=== PATIENT | female | born 1950 | race Caucasian/White ===

== ENCOUNTER → 2017-07-03 12:19 | Outpatient (CLI) | payer MEDICARE, OTHER, SELFPAY ==
[2017-07-03 13:48] LABS: Alanine Aminotransferase 26 IU/L (9-52); Albumin 4.1 g/dL (3.5-5.0); Albumin Globulin Ratio 1.5 (1.0-2.8); Alkaline Phosphatase 49 U/L (38-126); Aspartate Aminotransferase 23 IU/L (14-36); Bilirubin Total 0.6 mg/dL (0.2-1.3); Bilirubin Unconjugated 0.4 mg/dL (0.0-1.1); Globulin 2.7 g/dL (1.7-4.1); HEMOLYSIS < 15 (0-50); Total Protein 6.8 g/dL (6.3-8.2)
[2017-07-03 14:55] LABS: Free T4, Direct Thyroxine 0.88 ng/dL (0.78-2.19)
[2017-07-03 15:09] LABS: Thyroid Stimulating Hormone 0.28 uIU/mL (0.47-4.68)
[2017-07-05 16:18] LABS: Triiodothyronine T3 Total 88 ng/dL (76-181)
== END ==
PROVIDERS: PCP Internal Medicine; Visit Provider Internal Medicine Endocrinology, Diabetes & Metabolism
DX: E04.1 Nontoxic single thyroid nodule (principal); E05.90 Thyrotoxicosis, unspecified without thyrotoxic crisis or storm
CPT/HCPCS: 36415; 80076; 84439; 84443; 84480

== ENCOUNTER → 2017-08-10 11:57 | Outpatient (CLI) | payer MEDICARE, OTHER, SELFPAY ==
[2017-08-10 13:20] LABS: Free T3, Triiodothyronine Free 3.39 pg/mL (2.77-5.27); Free T4, Direct Thyroxine 0.87 ng/dL (0.78-2.19)
[2017-08-10 13:33] LABS: Thyroid Stimulating Hormone 1.01 uIU/mL (0.47-4.68)
== END ==
PROVIDERS: PCP Internal Medicine; Visit Provider Internal Medicine Endocrinology, Diabetes & Metabolism
DX: R94.6 Abnormal results of thyroid function studies (principal); E04.1 Nontoxic single thyroid nodule; E05.90 Thyrotoxicosis, unspecified without thyrotoxic crisis or storm
CPT/HCPCS: 36415; 84439; 84443; 84481

== ENCOUNTER → 2017-11-13 10:43 | Outpatient (CLI) | payer MEDICARE, OTHER, SELFPAY ==
[2017-11-13 11:27] LABS: Add Manual Diff / Slide Review NO; Basophils Percent Auto 1.2 % (0-2); Eosinophils Percent Auto 2.3 % (2-4); Hematocrit 42.6 % (36-46); Hemoglobin 14.4 g/dL (12.0-16.0); Lymphocytes Percent Auto 22.7 % (25-40); Mean Corpuscular HGB Conc 33.9 % (30-36); Mean Corpuscular Hemoglobin 31.1 PG (26-34); Mean Corpuscular Volume 91.8 fL (80-100); Monocytes Percent Auto 6.8 % (3-14); Neutrophils Absolute Auto 4400 /uL (3000-5900); Platelet Count 230 X10^3/uL (150-400); Red Blood Cell Count 4.64 X10^6/uL (4.0-5.2); Red Cell Distribution Width 13.7 % (11.6-14.8); White Blood Cell Count 6.6 X10^3/uL (4.5-11.0)
[2017-11-13 12:04] LABS: Alanine Aminotransferase 32 IU/L (9-52); Albumin 4.6 g/dL (3.5-5.0); Albumin Globulin Ratio 1.9 (1.0-2.8); Alkaline Phosphatase 39 U/L (38-126); Bilirubin Total 0.6 mg/dL (0.2-1.3); Bilirubin Unconjugated 0.2 mg/dL (0.0-1.1); Globulin 2.4 g/dL (1.7-4.1)
[2017-11-13 12:12] LABS: Aspartate Aminotransferase 33 IU/L (14-36); HEMOLYSIS 65 (0-50)
[2017-11-13 12:22] LABS: Free T3, Triiodothyronine Free 2.73 pg/mL (2.77-5.27); Free T4, Direct Thyroxine 0.81 ng/dL (0.78-2.19)
[2017-11-13 12:36] LABS: Thyroid Stimulating Hormone 2.85 uIU/mL (0.47-4.68)
== END ==
PROVIDERS: PCP Internal Medicine; Visit Provider Internal Medicine Endocrinology, Diabetes & Metabolism
DX: E04.1 Nontoxic single thyroid nodule (principal)
CPT/HCPCS: 36415; 80076; 84439; 84443; 84481; 85025

== ENCOUNTER → 2017-12-03 10:41 | Outpatient (CLI) | payer MEDICARE, OTHER, SELFPAY ==
--- NOTE | 2017-12-03 | DI.US.S_ITS ---
PROCEDURE: US THYROID INDICATIONS: NONTOXIC GOITER TECHNIQUE: Real-time scanning was performed of the thyroid gland, with image documentation. COMPARISON: [facility], [place], THYROID, 11/17/2014, 10:22. [facility], [place] THYROID, 12/21/2015, 8:30. FINDINGS: Right: Thyroid lobe measures 4.3 x 1.3 x 1.4 cm. Left: Thyroid lobe measures 4 x 1.2 x 1.4 cm and demonstrates multiple subcentimeter colloid cyst, with internal debris. Isthmus: 3 mm thick. Nodule number: 1 Location: Right superior thyroid Size: 0.8 x 0.7 x 0.6 cm, previously measuring 0.8 by 0.7 x 0.9 cm. Composition: Solid Echogenicity: Hypoechoic Shape: wider than tall. Margins: Smooth Echogenic foci: Punctate Total points: 7 ACR TI-RADS category: 5, highly suspicious. An ultrasound followup is recommended in 1, 3, and 5 years for a nodule of this size. Nodule number: 2 Location: Right isthmus Size: 0.5 x 0.5 x 0.3 cm, previously measuring 0.7 x 0.4 x 0.7 cm Composition: Cystic Echogenicity: Hypoechoic Shape: wider than tall. Margins: Smooth Echogenic foci: None Total points: 2 ACR TI-RADS category: 2, not suspicious. An ultrasound followup is recommended in 1, 3, and 5 years for a nodule of this size. IMPRESSION: Ultrasound followup is recommended for the larger of the 2 right thyroid nodules. ACR TI-RADS definitions and recommendations: TI-RADS 1 (benign): 0 points. FNA not needed. TI-RADS 2 (not suspicious): 2 points. FNA not needed. TI-RADS 3 (mildly suspicious): 3 points. * FNA if 2.5 cm or larger, follow up if 1.5 cm or larger (at 1, 3, and 5 years). TI-RADS 4 (moderately suspicious): 4-6 points. * FNA if 1.5 cm or larger, follow up if 1 cm or larger (at 1, 2, 3, and 5 years). TI-RADS 5 (highly suspicious): 7 points or more. * FNA if 1 cm or larger, follow up if 0.5 cm or larger (every year for 5 years). Dictated by: Henry Luna M.D. on 12/03/2017 at 11:42 Approved by: Henry Luna M.D. on 12/03/2017 at 11:47
== END ==
PROVIDERS: PCP Internal Medicine; Visit Provider Internal Medicine Endocrinology, Diabetes & Metabolism
DX: E04.2 Nontoxic multinodular goiter (principal)
CPT/HCPCS: 76536

== ENCOUNTER → 2018-01-18 11:39 | Outpatient (CLI) | payer MEDICARE, OTHER, SELFPAY ==
[2018-01-18 12:20] LABS: Add Manual Diff / Slide Review NO; Basophils Percent Auto 0.9 % (0-2); Hematocrit 40.8 % (36-46); Hemoglobin 13.6 g/dL (12.0-16.0); Lymphocytes Percent Auto 17.6 % (25-40); Mean Corpuscular HGB Conc 33.4 % (30-36); Mean Corpuscular Volume 92.8 fL (80-100); Monocytes Percent Auto 5.6 % (3-14); Neutrophils Absolute Auto 6700 /uL (3000-5900); Neutrophils Percent Auto 74.9 % (50-75); Platelet Count 225 X10^3/uL (150-400); White Blood Cell Count 8.9 X10^3/uL (4.5-11.0)
[2018-01-18 13:21] LABS: Alanine Aminotransferase 28 IU/L (9-52); Albumin Globulin Ratio 1.7 (1.0-2.8); Alkaline Phosphatase 46 U/L (38-126); Aspartate Aminotransferase 21 IU/L (14-36); Bilirubin Total 0.4 mg/dL (0.2-1.3); Bilirubin Unconjugated 0.3 mg/dL (0.0-1.1); Globulin 2.4 g/dL (1.7-4.1); HEMOLYSIS < 15 (0-50); Total Protein 6.4 g/dL (6.3-8.2)
[2018-01-18 13:28] LABS: Free T3, Triiodothyronine Free 2.75 pg/mL (2.77-5.27); Free T4, Direct Thyroxine 0.92 ng/dL (0.78-2.19)
[2018-01-18 13:41] LABS: Thyroid Stimulating Hormone 0.05 uIU/mL (0.47-4.68)
== END ==
PROVIDERS: Family Provider Internal Medicine; PCP Internal Medicine; Visit Provider Internal Medicine Endocrinology, Diabetes & Metabolism
DX: E05.90 Thyrotoxicosis, unspecified without thyrotoxic crisis or storm (principal)
CPT/HCPCS: 36415; 80076; 84439; 84443; 84481; 85025

== ENCOUNTER → 2018-02-16 12:40 | Outpatient (CLI) | payer MEDICARE, OTHER, SELFPAY ==
--- NOTE | 2018-02-16 | DI.MRI.S_ITS ---
PROCEDURE: MR SHOULDER LT WO CON INDICATIONS: Unspecified disorder of synovium and tendon, left TECHNIQUE: Noncontrast oblique coronal T2 fast spin echo with fat saturation, oblique sagittal T1 spin echo and T2 fast spin echo with fat saturation, axial T1 spin echo and T2 fast spin echo with fat saturation through the shoulder. COMPARISON: None. FINDINGS: Image quality: Excellent. Rotator cuff: There is a full-thickness rupture of distal supraspinatus at its insertion on greater tuberosity of humeral head with 1.6 cm medial retraction of torn tendon fibers and a fluid filled gap measures 2 cm in AP dimension. Tendinosis and moderate grade articular surface partial thickness tear involving distal supraspinatus is seen at its insertion on the humeral head extending to the musculotendinous junction. Tendinosis and moderate grade intrasubstance partial-thickness tear involving distal subscapularis is seen. Sagittal images demonstrate moderate supraspinatus muscle atrophy. Bones and bursae: No bone marrow contusions or fractures. Moderate acromioclavicular joint and glenohumeral joint osteoarthritis is seen. No gross fracture or dislocation. Small to moderate amount of fluid is seen within glenohumeral joint and subacromial subdeltoid bursa. No gross loose body. Capsule and soft tissues: There is suggestion of inferior labral tear from 5 to 7:00 position. No gross focal superior labral tear. The glenohumeral ligaments appear intact. The long head of the biceps tendon demonstrates normal location and morphology. The rotator interval appears normal, without fibrosis. The coracohumeral ligament is normal in thickness. IMPRESSION: 1. Full-thickness rupture of distal supraspinatus at its insertion on greater tuberosity with 1.6 cm medial retraction of torn tendon fibers. 2. Tendinosis and moderately articular surface partial-thickness tear involving distal supraspinatus at its insertion the humeral head extending to musculotendinous junction. Tendinosis and moderate grade intrasubstance partial-thickness tear involving distal subscapularis. 3. Extensive inferior labral tear from 5 to 7:00 position. 4. Moderate acromioclavicular joint and glenohumeral joint osteoarthritis. Small to moderate amount of joint effusion and subacromial subdeltoid bursal fluid. Dictated by: Luis Bojorquez M.D. on 02/18/2018 at 11:46 Approved by: Luis Bojorquez M.D. on 02/18/2018 at 11:53
== END ==
PROVIDERS: PCP Internal Medicine; Visit Provider Orthopaedic Surgery
DX: M75.122 Complete rotator cuff tear or rupture of left shoulder, not specified as traumatic (principal); S43.492A Other sprain of left shoulder joint, initial encounter; M19.012 Primary osteoarthritis, left shoulder; M25.412 Effusion, left shoulder
CPT/HCPCS: 73221

== ENCOUNTER → 2018-03-08 11:12 | Outpatient (CLI) | payer MEDICARE, OTHER, SELFPAY ==
[2018-03-08 15:37] LABS: Add Manual Diff / Slide Review NO; Basophils Absolute Auto 100 /uL (0-100); Eosinophils Absolute Auto 100 /uL (0-450); Eosinophils Percent Auto 1.7 % (2-4); Hematocrit 40.8 % (36-46); Hemoglobin 13.6 g/dL (12.0-16.0); Lymphocytes Absolute Auto 1700 /uL (1100-4500); Lymphocytes Percent Auto 19.6 % (25-40); Mean Corpuscular HGB Conc 33.4 % (30-36); Mean Corpuscular Hemoglobin 31.1 PG (26-34); Mean Corpuscular Volume 92.9 fL (80-100); Monocytes Absolute Auto 500 /uL (0-900); Monocytes Percent Auto 5.9 % (3-14); Neutrophils Absolute Auto 6200 /uL (1500-7000); Neutrophils Percent Auto 71.8 % (50-75); Platelet Count 241 X10^3/uL (150-400); Red Blood Cell Count 4.39 X10^6/uL (4.0-5.2); White Blood Cell Count 8.6 X10^3/uL (4.5-11.0)
[2018-03-08 15:55] LABS: Alanine Aminotransferase 23 IU/L (9-52); Albumin 4.4 g/dL (3.5-5.0); Alkaline Phosphatase 42 U/L (38-126); Aspartate Aminotransferase 24 IU/L (14-36); Bilirubin Total 0.5 mg/dL (0.2-1.3); Bilirubin Unconjugated 0.3 mg/dL (0.0-1.1); Globulin 2.2 g/dL (1.7-4.1); HEMOLYSIS < 15 (0-50); Total Protein 6.6 g/dL (6.3-8.2)
[2018-03-08 16:12] LABS: Free T3, Triiodothyronine Free 3.06 pg/mL (2.77-5.27); Free T4, Direct Thyroxine 0.91 ng/dL (0.78-2.19)
[2018-03-08 16:26] LABS: Thyroid Stimulating Hormone 1.43 uIU/mL (0.47-4.68)
== END ==
PROVIDERS: Family Provider Internal Medicine; PCP Internal Medicine; Visit Provider Internal Medicine Endocrinology, Diabetes & Metabolism
DX: E04.1 Nontoxic single thyroid nodule (principal); E05.90 Thyrotoxicosis, unspecified without thyrotoxic crisis or storm; R00.2 Palpitations
CPT/HCPCS: 36415; 80076; 84439; 84443; 84481; 85025

== ENCOUNTER 2018-04-26 16:43 | Emergency (ER) | payer MEDICARE, OTHER, SELFPAY ==
[2018-04-26 17:08] VITALS: BP 111/58; PULSE 107; RESP 18; TEMP 37.3; O2SAT 97
[2018-04-26] MEDS: ONDANSETRON 4 MG ODT PO (17:16)
--- NOTE | 2018-04-26 19:23 | ED.NAVMDI ---
HPI - Nausea/Vomiting/Diarrhea <VALENTE Ferguson Last Filed: 04/26/18 22:26> General Chief complaint: Nausea/Vomiting/Diarrhea Stated complaint: STATES FOOD POISONING YESTERDAY, N/V/D Time Seen by Provider: 04/26/18 19:23 Source: patient Mode of arrival: ambulatory Limitations: no limitations History of Present Illness HPI Narrative: This 67-year-old female complains of copious nausea and vomiting after eating out last night. Her was with her and had some diarrhea but has not had vomiting. She states she started feeling poorly awhile after dinner last night and then awoke and had continuous vomiting for about 5 hr until about 230 this morning. She states that vomiting stopped, but about 8 a.m. she began having very frequent diarrhea that gradually improved to every 0.5 hr then resolved around 2:00 p.m.. She states that she had some cramps with the diarrhea but really not having abdominal pain. She states that she continues to have nausea, could not keep water down earlier nor her Tylenol and ibuprofen that she is post to take for her shoulder pain (recent rotator cuff repair). She states that she did not have fever at home, had sweats with diarrhea. She denies any other recent exposures, no recent travel or recent antibiotics. She denies any chest pain or dyspnea, but does complain of headache on systems review Related Data Allergies Allergy/AdvReac Type Severity Reaction Status Date / Time Penicillins Allergy Mild Rash Verified 04/26/18 17:12 Sulfa (Sulfonamide Allergy Mild Redness of Verified 04/26/18 17:12 Antibiotics) Skin Review of Systems <VALENTE Ferguson Last Filed: 04/26/18 22:26> Review of Systems ROS Unobtainable: All systems reviewed & are unremarkable except as noted in HPI and below PFSH <VALENTE Ferguson Last Filed: 04/26/18 22:26> Medical History Hyperlipidemia (Chronic) Hyperthyroidism (Chronic) Surgical History S/P rotator cuff repair (Resolved) Status post cholecystectomy (Resolved) Status post oophorectomy (Resolved) Social History Smoking Status: Never smoker Social History Smoking Status: Never smoker Exam <VALENTE Ferguson Last Filed: 04/26/18 22:26> Narrative Exam Narrative: GENERAL APPEARANCE: Patient sitting comfortably, in no distress. HEENT: PERRL, EOMI, no scleral icterus NECK: Supple LUNGS: Clear to auscultation bilaterally. HEART: Rate and rhythm regular, normal S1 and S2, no S3 or S4. ABDOMEN: Soft, nontender, nondistended, bowel sounds present x 4 quadrants, no masses palpable, no hepatosplenomegaly. EXTREMITIES: No edema, no cyanosis DERMATOLOGIC: No jaundice or exanthem NEUROLOGIC: Alert and oriented with normal speech and coordination Initial Vital Signs Initial Vital Signs: Vital Signs Temperature 99.1 F 04/26/18 17:08 Pulse Rate 107 H 04/26/18 17:08 Respiratory Rate 18 04/26/18 17:08 Blood Pressure 111/58 L 04/26/18 17:08 Pulse Oximetry 97 04/26/18 17:08 <Fabby Maxwell DO - Last Filed: 04/27/18 04:39> Initial Vital Signs Initial Vital Signs: Vital Signs Temperature 99.1 F 04/26/18 17:08 Pulse Rate 107 H 04/26/18 17:08 Respiratory Rate 18 04/26/18 17:08 Blood Pressure 111/58 L 04/26/18 17:08 Pulse Oximetry 97 04/26/18 17:08 Course <Rachel Armando PA-C - Last Filed: 04/26/18 22:26> Additional Information: Patient is feeling significantly improved prior to discharge. Tolerating oral fluids, no recurrent vomiting or diarrhea. She agreed to return if acutely worsening symptoms again, otherwise will rest at home, brat diet, Zofran as needed and Imodium as needed Orders Ordered: ED Orders 04/26/18 19:45 Complete Blood Count AUTO DIFF Stat Comprehensive Metabolic Panel Stat Lipase Stat Partial Thromboplastin Time Stat Prothrombin Time INR Stat Discontinued Medications Sodium Chloride (Normal Saline 0.9%) 1,000 mls @ 1,000 mls/hr IV BOLUS ONE Stop: 04/26/18 20:18 Last Infusion: 04/26/18 22:03 Dose: 0 mls/hr Admin: 04/26/18 19:53 Dose: 1,000 mls/hr Sodium Chloride (Normal Saline 0.9%) 1,000 mls @ 1,000 mls/hr IV BOLUS ONE Stop: 04/26/18 20:36 Last Admin: 04/26/18 20:07 Dose: Not Given Ketorolac Tromethamine (Toradol) 15 mg IV NOW ONE Stop: 04/26/18 19:38 Last Admin: 04/26/18 20:00 Dose: 15 mg Loperamide HCl (Imodium) 4 mg PO NOW ONE Stop: 04/26/18 21:27 Last Admin: 04/26/18 21:50 Dose: 4 mg Ondansetron HCl (Zofran Odt) 4 mg PO NOW ONE Stop: 04/26/18 17:16 Last Admin: 04/26/18 17:16 Dose: 4 mg Ondansetron HCl (Zofran) 4 mg IV NOW ONE Stop: 04/26/18 19:20 Last Admin: 04/26/18 19:54 Dose: 4 mg Ondansetron HCl (Zofran) 4 mg IV NOW ONE Stop: 04/26/18 19:38 Last Admin: 04/26/18 20:07 Dose: Not Given Ondansetron HCl (Zofran Odt Prepack) 1 bottle MISC SEEINSTR ONE Stop: 04/26/18 21:27 Last Admin: 04/26/18 21:51 Dose: 1 bottle Pantoprazole Sodium (Protonix) 40 mg IV NOW ONE Stop: 04/26/18 19:38 Last Admin: 04/26/18 20:00 Dose: 40 mg Vital Signs - 8 hr 04/26/18 22:04 Pulse Rate 80 Respiratory Rate 18 Blood Pressure 115/59 L Pulse Oximetry 98 <Fabby Maxwell, - Last Filed: 04/27/18 04:39> Orders Ordered: ED Orders 04/26/18 19:45 Complete Blood Count AUTO DIFF Stat Comprehensive Metabolic Panel Stat Lipase Stat Partial Thromboplastin Time Stat Prothrombin Time INR Stat Discontinued Medications Sodium Chloride (Normal Saline 0.9%) 1,000 mls @ 1,000 mls/hr IV BOLUS ONE Stop: 04/26/18 20:18 Last Infusion: 04/26/18 22:03 Dose: 0 mls/hr Admin: 04/26/18 19:53 Dose: 1,000 mls/hr Sodium Chloride (Normal Saline 0.9%) 1,000 mls @ 1,000 mls/hr IV BOLUS ONE Stop: 04/26/18 20:36 Last Admin: 04/26/18 20:07 Dose: Not Given Ketorolac Tromethamine (Toradol) 15 mg IV NOW ONE Stop: 04/26/18 19:38 Last Admin: 04/26/18 20:00 Dose: 15 mg Loperamide HCl (Imodium) 4 mg PO NOW ONE Stop: 04/26/18 21:27 Last Admin: 04/26/18 21:50 Dose: 4 mg Ondansetron HCl (Zofran Odt) 4 mg PO NOW ONE Stop: 04/26/18 17:16 Last Admin: 04/26/18 17:16 Dose: 4 mg Ondansetron HCl (Zofran) 4 mg IV NOW ONE Stop: 04/26/18 19:20 Last Admin: 04/26/18 19:54 Dose: 4 mg Ondansetron HCl (Zofran) 4 mg IV NOW ONE Stop: 04/26/18 19:38 Last Admin: 04/26/18 20:07 Dose: Not Given Ondansetron HCl (Zofran Odt Prepack) 1 bottle MISC SEEINSTR ONE Stop: 04/26/18 21:27 Last Admin: 04/26/18 21:51 Dose: 1 bottle Pantoprazole Sodium (Protonix) 40 mg IV NOW ONE Stop: 04/26/18 19:38 Last Admin: 04/26/18 20:00 Dose: 40 mg Vital Signs - 8 hr 04/26/18 22:04 Pulse Rate 80 Respiratory Rate 18 Blood Pressure 115/59 L Pulse Oximetry 98 MDM - Nausea/Vomiting/Diarrhea <Rachel Armando PA-C - Last Filed: 04/26/18 22:26> Lab Data Result diagrams: 04/26/18 19:45 04/26/18 19:45 Lab Results 04/26/18 04/26/18 04/26/18 Range/Units 19:45 19:45 19:45 WBC 12.8 H (4.5-11.0) X10^3/uL RBC 4.77 (4.0-5.2) X10^6/uL Hgb 14.7 (12.0-16.0) g/dL Hct 43.1 (36-46) % MCV 90.4 (80-100) fL MCH 30.8 (26-34) PG MCHC 34.0 (30-36) % RDW 13.1 (11.6-14.8) % Plt Count 271 (150-400) X10^3/uL Neut % (Auto) 84.2 H (50-75) % Lymph % (Auto) 5.6 L (25-40) % [place] % (Auto) 5.2 (3-14) % Eos % (Auto) 4.6 H (2-4) % Baso % (Auto) 0.4 (0-2) % Neut # (Auto) 08533 H (6783-6179) /uL Lymph # (Auto) 700 L (5981-2038) /uL [place] # (Auto) 700 (0-900) /uL Eos # (Auto) 600 H (0-450) /uL Baso # (Auto) 0 (0-100) /uL PT 13.6 H (10.1-12.7) SECONDS INR 1.1 (0.9-1.3) APTT 27 (26.4-36.2) SECONDS Sodium 135 L (137-145) mmol/L Potassium 3.7 (3.4-5.1) mmol/L Chloride 99 (98-107) mmol/L Carbon Dioxide 25 (22-32) mmol/L BUN 18 H (7-17) mg/dL Creatinine 0.60 (0.52-1.04) mg/dL Estimated GFR > 60.0 (>60) mL/min BUN/Creatinine Ratio 30.0 H (6-22) Glucose 100 (80-110) mg/dL Calcium 8.9 (8.4-10.2) mg/dL Total Bilirubin 0.5 (0.2-1.3) mg/dL AST 36 (14-36) IU/L ALT 47 (9-52) IU/L Alkaline Phosphatase 55 (38-126) U/L Total Protein 7.5 (6.3-8.2) g/dL Albumin 4.4 (3.5-5.0) g/dL Globulin 3.1 (1.7-4.1) g/dL Albumin/Globulin Ratio 1.4 (1.0-2.8) Lipase 42 (23-300) U/L <Fabby Maxwell, DO - Last Filed: 04/27/18 04:39> Lab Data Lab Results 03/04/26/18 04/26/18 Range/Units 19:45 19:45 19:45 WBC 12.8 H (4.5-11.0) X10^3/uL RBC 4.77 (4.0-5.2) X10^6/uL Hgb 14.7 (12.0-16.0) g/dL Hct 43.1 (36-46) % MCV 90.4 (80-100) fL MCH 30.8 (26-34) PG MCHC 34.0 (30-36) % RDW 13.1 (11.6-14.8) % Plt Count 271 (150-400) X10^3/uL Neut % (Auto) 84.2 H (50-75) % Lymph % (Auto) 5.6 L (25-40) % [place] % (Auto) 5.2 (3-14) % Eos % (Auto) 4.6 H (2-4) % Baso % (Auto) 0.4 (0-2) % Neut # (Auto) 96449 H (2334-8110) /uL Lymph # (Auto) 700 L (7156-2540) /uL [place] # (Auto) 700 (0-900) /uL Eos # (Auto) 600 H (0-450) /uL Baso # (Auto) 0 (0-100) /uL PT 13.6 H (10.1-12.7) SECONDS INR 1.1 (0.9-1.3) APTT 27 (26.4-36.2) SECONDS Sodium 135 L (137-145) mmol/L Potassium 3.7 (3.4-5.1) mmol/L Chloride 99 (98-107) mmol/L Carbon Dioxide 25 (22-32) mmol/L BUN 18 H (7-17) mg/dL Creatinine 0.60 (0.52-1.04) mg/dL Estimated GFR > 60.0 (>60) mL/min BUN/Creatinine Ratio 30.0 H (6-22) Glucose 100 (80-110) mg/dL Calcium 8.9 (8.4-10.2) mg/dL Total Bilirubin 0.5 (0.2-1.3) mg/dL AST 36 (14-36) IU/L ALT 47 (9-52) IU/L Alkaline Phosphatase 55 (38-126) U/L Total Protein 7.5 (6.3-8.2) g/dL Albumin 4.4 (3.5-5.0) g/dL Globulin 3.1 (1.7-4.1) g/dL Albumin/Globulin Ratio 1.4 (1.0-2.8) Lipase 42 (23-300) U/L Discharge Plan Departure Patient Disposition: Home Clinical Impression: Gastroenteritis Discharge Date/Time: 04/26/18 22:10 Interventions: ED Discharge Assessment Last Done: 04/26/18 22:04 Instructions: DI for Viral Gastroenteritis -- Adult, Gastroenteritis Diet Activity Restrictions/Additional Instructions: Since you are feeling better and have not had vomiting or diarrhea since afternoon, you can return home to rest. Please continue to drink clear fluids, and as you start to feel better you can add bland foods such as clear broth, bananas, applesauce, white rice or white toast. You can advance from there as you feel better, but try start to foods like a baked potato without the skin, plain pasta or a scrambled egg before you try your more typical diet. You can use the nausea pills that we gave you in the next day or so if you need them, 1 tablet dissolved under the tongue every 6-8 hours. You can take Imodium as needed for diarrhea. As we talked about, you should return to the ED if you have any acutely worsening symptoms again Referrals: Danielle Juárez MD [Primary Care Provider] - <Fabby Maxwell DO - Last Filed: 04/27/18 04:39> Cosign ED Attending Mark Attestation: I was immediately available in the department for consultation. Documentation has been reviewed. I agree with assessment and plan.
[2018-04-26 19:53] LABS: Add Manual Diff / Slide Review NO; Basophils Absolute Auto 0 /uL (0-100); Basophils Percent Auto 0.4 % (0-2); Eosinophils Absolute Auto 600 /uL (0-450); Eosinophils Percent Auto 4.6 % (2-4); Hematocrit 43.1 % (36-46); Hemoglobin 14.7 g/dL (12.0-16.0); Lymphocytes Absolute Auto 700 /uL (1100-4500); Lymphocytes Percent Auto 5.6 % (25-40); Mean Corpuscular Hemoglobin 30.8 PG (26-34); Mean Corpuscular Volume 90.4 fL (80-100); Monocytes Absolute Auto 700 /uL (0-900); Monocytes Percent Auto 5.2 % (3-14); Neutrophils Absolute Auto 10800 /uL (1500-7000); Neutrophils Percent Auto 84.2 % (50-75); Platelet Count 271 X10^3/uL (150-400); Red Blood Cell Count 4.77 X10^6/uL (4.0-5.2); Red Cell Distribution Width 13.1 % (11.6-14.8); White Blood Cell Count 12.8 X10^3/uL (4.5-11.0)
[2018-04-26] MEDS: SODIUM CHLORIDE 0.9% 1,000 ML 1000 ML IV (19:53)
[2018-04-26] MEDS: ONDANSETRON 4 MG/2 ML INJ IV (19:54)
[2018-04-26] MEDS: KETOROLAC 60 MG/2 ML VIAL 15 MG IV (20:00)
[2018-04-26] MEDS: PANTOPRAZOLE 40 MG VIAL IV (20:00)
[2018-04-26 20:06] LABS: Alanine Aminotransferase 47 IU/L (9-52); Albumin 4.4 g/dL (3.5-5.0); Albumin Globulin Ratio 1.4 (1.0-2.8); Alkaline Phosphatase 55 U/L (38-126); Aspartate Aminotransferase 36 IU/L (14-36); Bilirubin Total 0.5 mg/dL (0.2-1.3); Blood Urea Nitrogen 18 mg/dL (7-17); Calcium 8.9 mg/dL (8.4-10.2); Carbon Dioxide 25 mmol/L (22-32); Chloride 99 mmol/L (98-107); Estimated Glomerular Filt Rate > 60.0 mL/min (>60); Globulin 3.1 g/dL (1.7-4.1); Glucose 100 mg/dL (80-110); HEMOLYSIS < 15 (0-50); Lipase 42 U/L (23-300); Potassium 3.7 mmol/L (3.4-5.1); Sodium 135 mmol/L (137-145); Total Protein 7.5 g/dL (6.3-8.2)
[2018-04-26 20:13] LABS: PTT Partial Thromboplastin Tim 27 SECONDS (26.4-36.2)
[2018-04-26 20:14] LABS: Prothrombin Time 13.6 SECONDS (10.1-12.7)
[2018-04-26 20:15] LABS: INR 1.1 (0.9-1.3)
--- NOTE | 2018-04-26 21:49 | PC.NURSE ---
report from Myesha Alvarez. See provider notes for assessment
[2018-04-26] MEDS: LOPERAMIDE 2 MG CAPSULE 4 MG PO (21:50)
[2018-04-26] MEDS: ONDANSETRON 4 MG ODT PREPACK 1 BOTTLE MISC (21:51)
[2018-04-26 22:04] VITALS: BP 115/59; PULSE 80; RESP 18; O2SAT 98
== END 2018-04-26 22:10 | disposition home or self-care (01) ==
PROVIDERS: Emergency Medicine; Emergency Provider Internal Medicine; Family Provider Internal Medicine; PCP Internal Medicine
DX: K52.9 Noninfective gastroenteritis and colitis, unspecified (principal)
CPT/HCPCS: 36591; 80053; 83690; 85025; 85610; 85730; 96361; 96374; 96375; 99283; 99284; C9113; J1885; J2405

== ENCOUNTER 2018-04-28 12:09 | Emergency (ER) | payer MEDICARE, OTHER, SELFPAY ==
[2018-04-28 12:18] VITALS: BP 112/76; PULSE 85; RESP 16; TEMP 36.6; O2SAT 97
[2018-04-28] MEDS: SODIUM CHLORIDE 0.9% 1,000 ML 1000 ML IV ×2 (13:49→15:35)
--- NOTE | 2018-04-28 14:03 | ED_ITS ---
HPI - Abdominal Pain General Chief Complaint: Abdominal Pain Stated Complaint: nauseous, diarrhea, dehydration Time Seen by Provider: 04/28/18 12:24 Source: patient Mode of arrival: ambulatory Limitations: no limitations History of Present Illness HPI narrative: Patient comes to the emergency department complaining of ongoing nausea and diarrhea. She was seen 2 days ago for the same after developing nausea, vomiting, and diarrhea after eating French food the day before. She states that her had had some diarrhea for a couple of days before that, but that his illness was not as severe as hers. He was the only other other one who ate the same food as her that she knows of, and she states that he did not have any worsening of his symptoms afterward. Patient states that after 24 hr of symptoms, she came to the emergency department 2 nights ago and was worked up and treated for dehydration. She states that she was given fluids and antiemetics, as well as a little less than a cup of water as a p.o. challenge and with oral Imodium in the ED. She states she tolerated that p.o. until she got home, at which time she vomited it all up. Patient states that she had decreased diarrhea that night after taking the Imodium, but that the diarrhea rebounded last night. She states that her diarrhea seems to have slowed down a little bit this morning, but she continues to have ongoing nausea, as well as a headache. Patient states she is concerned because she has not been able to eat anything in 3 days and says that it is difficult for her to tolerate fluids as well however, patient does note that she may have been pushing a little too hard, as far as the oral fluids. The patient denies travel anywhere out of the country recently, and no camping. She does note that she had a bilateral otitis media here a few weeks ago, at which time she was treated with antibiotics. Patient is also recovering from a rotator cuff repair that was done within the last month. Patient states she is otherwise healthy and has no underlying abdominal issues. Related Data Previous Rx's Medication Instructions Recorded ondansetron 4 mg PO Q6-8H PRN #14 tab 04/28/18 Allergies Allergy/AdvReac Type Severity Reaction Status Date / Time Penicillins Allergy Mild Rash Verified 04/26/18 17:12 Sulfa (Sulfonamide Allergy Mild Redness of Verified 04/26/18 17:12 Antibiotics) Skin Review of Systems Constitutional Denies chills, Denies fever(s), Reports headache(s), Denies lethargy and Denies weakness Eyes Denies change in vision, Denies eye discharge, Denies irritation and Denies loss of vision ENT Ears, Nose, Mouth, and Throat: Denies change in voice, Reports headache(s), Denies neck pain and Denies sore throat Cardiovascular Denies chest pain, Denies irregular heart rhythm, Denies lightheadedness, Denies palpitations, Denies dyspnea, Denies dyspnea on exertion and Denies orthopnea Respiratory Denies cough, Denies dyspnea, Denies dyspnea on exertion and Denies wheezing Gastrointestinal Gastrointestinal: Denies abdominal pain, Denies change in bowel habits, Reports diarrhea, Reports nausea and Reports vomiting Genitourinary Denies hematuria, Denies flank pain, Denies urinary incontinence and Denies urinary urgency Musculoskeletal Denies neck pain Integumentary/Breasts Denies pruritus, Denies erythema, Denies rash and Denies wounds Neurologic Denies confusion, Reports headache(s), Denies loss of vision and Denies weakness Psychiatric Denies anxiety, Denies confusion, Denies depression, Denies homicidal ideation and Denies suicidal ideation Endocrine Denies palpitations Hematologic/Lymphatic Denies easy bruising Allergic/Immunologic Denies wheezing PFSH Medical History Hyperlipidemia (Chronic) Hyperthyroidism (Chronic) Surgical History S/P rotator cuff repair (Resolved) Status post cholecystectomy (Resolved) Status post oophorectomy (Resolved) Social History Smoking Status: Never smoker Social History Smoking Status: Never smoker Exam Initial Vital Signs Initial Vital Signs: Vital Signs Temperature 97.8 F 04/28/18 12:18 Pulse Rate 85 04/28/18 12:18 Respiratory Rate 16 04/28/18 12:18 Blood Pressure 112/76 04/28/18 12:18 Pulse Oximetry 97 04/28/18 12:18 Const General: cooperative and well developed Nutritional Appearance: well nourished Orientation: alert, awake, oriented x3 and not confused HENSD Head: normocephalic and atraumatic Ears: external ears normal and TM's normal bilaterally Nose: external nose normal and No nasal discharge Face and sinus: face symmetric and No dry mucous membranes Mouth: oral mucosae normal and moist mucous membranes Teeth and gingiva: dentition normal Eyes General: appearance normal, both eyes and all related structures Eyelids: eyelids normal Conjunctivae: conjunctivae normal Sclera: sclerae normal Pupils: PERRL EOM: EOM intact bilaterally Neck Neck: normal visual inspection, trachea midline, No lymphadenopathy, No midline deformity and No JVD Lymphatic: No lymphedema Chest Chest: normal inspection of the chest Resp Effort & Inspection: normal respiratory effort, able to speak in complete sentences, no respiratory distress and no use of accessory muscles Auscultation: clear to auscultation bilaterally, no rales, no rhonchi and no wheezes Cardio Rate: regular rate Rhythm: regular rhythm Heart Sounds: no click, no gallops, no murmurs and no rubs Pulses: normal peripheral pulses GI Inspection: non-distended Palpation: soft, no hepatosplenomegaly, No guarding, No pulsatile mass and No tender Auscultation: normal bowel sounds Back/Spine/Pelvis Back: No CVA tenderness Cervical Spine: cervical ROM normal and No pain with cervical ROM Thoracic/Lumbar Spine: thoracic and lumbar spine normal to inspection Skin General: no rashes or lesions noted, No jaundice and No petechiae Neuro General: alert, oriented x3, gait normal and no focal motor deficits Speech: speech normal Extrem General: full ROM, no clubbing, cyanosis or edema, no pedal edema and no calf tenderness Psych Appearance: well kempt Mental Status: mental status grossly normal Attitude: cooperative Thought Content: normal and suicidality Judgment: judgment good Course Course Narrative: Patient was worked up with laboratory studies, and given IV fluids until able to produce light yellow urine. I did also ask her to give a stool sample if she could. Patient's labs were unremarkable. She did take 2 L of 0.9 normal saline, and was only able to give a small stool sample. This was tested for C diff toxin, and found to be negative. Patient was found to be feeling much better on re-evaluation. I discussed with the patient and her that her symptoms are most likely viral in nature, and will be self limited. We discussed home management, as well as the usual indications for return. Orders Ordered: Discontinued Medications Sodium Chloride (Normal Saline 0.9%) 1,000 mls @ 1,000 mls/hr IV BOLUS ONE Stop: 04/28/18 14:47 Last Infusion: 04/28/18 15:33 Dose: 0 mls/hr Admin: 04/28/18 13:49 Dose: 1,000 mls/hr Sodium Chloride (Normal Saline 0.9%) 1,000 mls @ 1,000 mls/hr IV BOLUS ONE Stop: 04/28/18 14:52 Last Infusion: 04/28/18 16:51 Dose: 0 mls/hr Admin: 04/28/18 15:35 Dose: 1,000 mls/hr Ondansetron HCl (Zofran) 4 mg IV NOW ONE Stop: 04/28/18 13:54 Last Admin: 04/28/18 14:24 Dose: 4 mg Vital Signs - 8 hr 04/28/18 12:18 Temperature 97.8 F Pulse Rate 85 Respiratory Rate 16 Blood Pressure 112/76 Pulse Oximetry 97 MDM - Abdominal Pain Medical Records Attestation: I reviewed the patient's medical records. Lab Data Attestation: I reviewed the patient's lab results. Result diagrams: 04/28/18 14:10 04/28/18 14:10 Lab Results 04/28/18 04/28/18 04/28/18 Range/Units 14:10 14:10 15:40 WBC 7.7 (4.5-11.0) X10^3/uL RBC 4.19 (4.0-5.2) X10^6/uL Hgb 12.9 (12.0-16.0) g/dL Hct 38.6 (36-46) % MCV 92.0 (80-100) fL MCH 30.7 (26-34) PG MCHC 33.3 (30-36) % RDW 13.3 (11.6-14.8) % Plt Count 203 (150-400) X10^3/uL Neut % (Auto) 60.3 D (50-75) % Lymph % (Auto) 16.7 L (25-40) % [place] % (Auto) 11.6 (3-14) % Eos % (Auto) 10.5 H (2-4) % Baso % (Auto) 0.9 (0-2) % Neut # (Auto) 4700 (5674-6073) /uL Lymph # (Auto) 1300 (8539-6838) /uL [place] # (Auto) 900 (0-900) /uL Eos # (Auto) 800 H (0-450) /uL Baso # (Auto) 100 (0-100) /uL Sodium 139 (137-145) mmol/L Potassium 3.6 (3.4-5.1) mmol/L Chloride 107 (98-107) mmol/L Carbon Dioxide 24 (22-32) mmol/L BUN 12 (7-17) mg/dL Creatinine 0.60 (0.52-1.04) mg/dL Estimated GFR > 60.0 (>60) mL/min BUN/Creatinine Ratio 20.0 (6-22) Glucose 76 L (80-110) mg/dL Calcium 8.5 (8.4-10.2) mg/dL Total Bilirubin 0.3 (0.2-1.3) mg/dL AST 29 (14-36) IU/L ALT 48 (9-52) IU/L Alkaline Phosphatase 42 (38-126) U/L Total Protein 6.2 L (6.3-8.2) g/dL Albumin 3.6 (3.5-5.0) g/dL Globulin 2.6 (1.7-4.1) g/dL Albumin/Globulin Ratio 1.4 (1.0-2.8) Lipase 55 (23-300) U/L Stool Occult Blood (Negative) C. difficile Tox (PCR) Negative for c. diff 04/28/18 Range/Units 15:40 WBC (4.5-11.0) X10^3/uL RBC (4.0-5.2) X10^6/uL Hgb (12.0-16.0) g/dL Hct (36-46) % MCV (80-100) fL MCH (26-34) PG MCHC (30-36) % RDW (11.6-14.8) % Plt Count (150-400) X10^3/uL Neut % (Auto) (50-75) % Lymph % (Auto) (25-40) % [place] % (Auto) (3-14) % Eos % (Auto) (2-4) % Baso % (Auto) (0-2) % Neut # (Auto) (6765-4137) /uL Lymph # (Auto) (9119-7988) /uL [place] # (Auto) (0-900) /uL Eos # (Auto) (0-450) /uL Baso # (Auto) (0-100) /uL Sodium (137-145) mmol/L Potassium (3.4-5.1) mmol/L Chloride (98-107) mmol/L Carbon Dioxide (22-32) mmol/L BUN (7-17) mg/dL Creatinine (0.52-1.04) mg/dL Estimated GFR (>60) mL/min BUN/Creatinine Ratio (6-22) Glucose (80-110) mg/dL Calcium (8.4-10.2) mg/dL Total Bilirubin (0.2-1.3) mg/dL AST (14-36) IU/L ALT (9-52) IU/L Alkaline Phosphatase (38-126) U/L Total Protein (6.3-8.2) g/dL Albumin (3.5-5.0) g/dL Globulin (1.7-4.1) g/dL Albumin/Globulin Ratio (1.0-2.8) Lipase (23-300) U/L Stool Occult Blood Negative (Negative) C. difficile Tox (PCR) Discharge Plan Departure Patient Disposition: Home Clinical Impression: Gastroenteritis Discharge Date/Time: 04/28/18 18:45 Interventions: ED Discharge Assessment Last Done: 04/28/18 18:45 Instructions: DI for Viral Gastroenteritis -- Adult Activity Restrictions/Additional Instructions: Your C diff test was negative. Your labs look good. You most likely have 1 of the stomach flu viruses that are going around right now, causing such symptoms. You may take clear liquids by mouth, but is very important that he take only very small amounts at a time, such as a couple of ice chips for a couple spoonfuls of water or Gatorade, and then wait for 20 min before taking anymore. Prescriptions: New ondansetron 4 mg tablet,disintegrating 4 mg PO Q6-8H PRN (Reason: nausea and vomiting) Qty: 14 RF: 0 Referrals: Danielle Juárez MD [Primary Care Provider] -
[2018-04-28 14:04] VITALS: BP 125/78; PULSE 60; RESP 16; O2SAT 100
[2018-04-28 14:24] LABS: Add Manual Diff / Slide Review NO; Basophils Absolute Auto 100 /uL (0-100); Basophils Percent Auto 0.9 % (0-2); Eosinophils Absolute Auto 800 /uL (0-450); Eosinophils Percent Auto 10.5 % (2-4); Hematocrit 38.6 % (36-46); Hemoglobin 12.9 g/dL (12.0-16.0); Lymphocytes Absolute Auto 1300 /uL (1100-4500); Lymphocytes Percent Auto 16.7 % (25-40); Mean Corpuscular HGB Conc 33.3 % (30-36); Mean Corpuscular Hemoglobin 30.7 PG (26-34); Monocytes Absolute Auto 900 /uL (0-900); Monocytes Percent Auto 11.6 % (3-14); Neutrophils Absolute Auto 4700 /uL (1500-7000); Neutrophils Percent Auto 60.3 % (50-75); Platelet Count 203 X10^3/uL (150-400); Red Blood Cell Count 4.19 X10^6/uL (4.0-5.2); Red Cell Distribution Width 13.3 % (11.6-14.8); White Blood Cell Count 7.7 X10^3/uL (4.5-11.0)
[2018-04-28] MEDS: ONDANSETRON 4 MG/2 ML INJ IV (14:24)
[2018-04-28 14:28] LABS: Alanine Aminotransferase 48 IU/L (9-52); Albumin 3.6 g/dL (3.5-5.0); Albumin Globulin Ratio 1.4 (1.0-2.8); Alkaline Phosphatase 42 U/L (38-126); Aspartate Aminotransferase 29 IU/L (14-36); Bilirubin Total 0.3 mg/dL (0.2-1.3); Blood Urea Nitrogen 12 mg/dL (7-17); Calcium 8.5 mg/dL (8.4-10.2); Carbon Dioxide 24 mmol/L (22-32); Chloride 107 mmol/L (98-107); Estimated Glomerular Filt Rate > 60.0 mL/min (>60); Globulin 2.6 g/dL (1.7-4.1); Glucose 76 mg/dL (80-110); HEMOLYSIS 21 (0-50); Lipase 55 U/L (23-300); Potassium 3.6 mmol/L (3.4-5.1); Sodium 139 mmol/L (137-145); Total Protein 6.2 g/dL (6.3-8.2)
[2018-04-28 16:24] LABS: Occult Blood 1 Negative (Negative)
[2018-04-28 17:25] VITALS: BP 130/78; PULSE 56; RESP 20; O2SAT 100
[2018-04-28 17:36] LABS: Clostridium Difficile Tox PCR Negative for C. diff
[2018-04-28 18:43] VITALS: BP 133/78; PULSE 62; RESP 16; TEMP 36.8; O2SAT 99
== END 2018-04-28 18:45 | disposition home or self-care (01) ==
PROVIDERS: Emergency Provider Emergency Medicine; Family Provider Internal Medicine; PCP Internal Medicine
DX: K52.9 Noninfective gastroenteritis and colitis, unspecified (principal)
CPT/HCPCS: 36415; 36591; 80053; 82270; 83690; 85025; 87493; 96360; 96361; 99283; 99284; J2405

== ENCOUNTER → 2018-05-15 11:13 | Outpatient (CLI) | payer MEDICARE, OTHER, SELFPAY ==
[2018-05-15 12:09] LABS: Add Manual Diff / Slide Review NO; Basophils Absolute Auto 100 /uL (0-100); Basophils Percent Auto 1.3 % (0-2); Eosinophils Absolute Auto 500 /uL (0-450); Eosinophils Percent Auto 6.9 % (2-4); Hematocrit 39.5 % (36-46); Lymphocytes Absolute Auto 1700 /uL (1100-4500); Mean Corpuscular HGB Conc 32.9 % (30-36); Mean Corpuscular Hemoglobin 30.5 PG (26-34); Mean Corpuscular Volume 92.7 fL (80-100); Monocytes Absolute Auto 600 /uL (0-900); Monocytes Percent Auto 8.8 % (3-14); Neutrophils Absolute Auto 4300 /uL (1500-7000); Platelet Count 282 X10^3/uL (150-400); Red Blood Cell Count 4.26 X10^6/uL (4.0-5.2); White Blood Cell Count 7.2 X10^3/uL (4.5-11.0)
[2018-05-15 12:44] LABS: Alanine Aminotransferase 32 IU/L (9-52); Albumin Globulin Ratio 1.6 (1.0-2.8); Alkaline Phosphatase 46 U/L (38-126); Aspartate Aminotransferase 25 IU/L (14-36); Bilirubin Total 0.3 mg/dL (0.2-1.3); Bilirubin Unconjugated 0.2 mg/dL (0.0-1.1); Globulin 2.5 g/dL (1.7-4.1); HEMOLYSIS < 15 (0-50); Total Protein 6.5 g/dL (6.3-8.2)
[2018-05-15 12:53] LABS: Free T3, Triiodothyronine Free 3.75 pg/mL (2.77-5.27); Free T4, Direct Thyroxine 1.12 ng/dL (0.78-2.19)
[2018-05-15 13:06] LABS: Thyroid Stimulating Hormone 3.07 uIU/mL (0.47-4.68)
== END ==
PROVIDERS: Family Provider Internal Medicine; PCP Internal Medicine; Visit Provider Internal Medicine Endocrinology, Diabetes & Metabolism
DX: E05.90 Thyrotoxicosis, unspecified without thyrotoxic crisis or storm (principal)
CPT/HCPCS: 36415; 80076; 84439; 84443; 84481; 85025

== ENCOUNTER → 2018-08-20 11:03 | Outpatient (CLI) | payer MEDICARE, OTHER, SELFPAY ==
[2018-08-20 12:57] LABS: Free T3, Triiodothyronine Free 3.84 pg/mL (2.77-5.27); Free T4, Direct Thyroxine 0.95 ng/dL (0.78-2.19)
[2018-08-20 13:11] LABS: Thyroid Stimulating Hormone 1.37 uIU/mL (0.47-4.68)
== END ==
PROVIDERS: Family Provider Internal Medicine; PCP Internal Medicine; Visit Provider Internal Medicine Endocrinology, Diabetes & Metabolism
DX: E05.90 Thyrotoxicosis, unspecified without thyrotoxic crisis or storm (principal)
CPT/HCPCS: 36415; 84439; 84443; 84481

== ENCOUNTER → 2018-11-13 15:38 | Outpatient (CLI) | payer MEDICARE, OTHER, SELFPAY ==
[2018-11-13 16:04] LABS: Add Manual Diff / Slide Review NO; Basophils Absolute Auto 100 /uL (0-100); Basophils Percent Auto 1.1 % (0-2); Eosinophils Absolute Auto 200 /uL (0-450); Eosinophils Percent Auto 2.8 % (2-4); Hematocrit 42.3 % (36-46); Hemoglobin 14.1 g/dL (12.0-16.0); Lymphocytes Absolute Auto 1800 /uL (1100-4500); Mean Corpuscular HGB Conc 33.4 % (30-36); Mean Corpuscular Hemoglobin 30.5 PG (26-34); Mean Corpuscular Volume 91.4 fL (80-100); Monocytes Absolute Auto 700 /uL (0-900); Monocytes Percent Auto 7.8 % (3-14); Neutrophils Absolute Auto 5600 /uL (1500-7000); Neutrophils Percent Auto 66.3 % (50-75); Platelet Count 264 X10^3/uL (150-400); Red Blood Cell Count 4.63 X10^6/uL (4.0-5.2); White Blood Cell Count 8.4 X10^3/uL (4.5-11.0)
[2018-11-13 16:44] LABS: Alanine Aminotransferase 20 IU/L (9-52); Albumin 4.4 g/dL (3.5-5.0); Albumin Globulin Ratio 1.6 (1.0-2.8); Alkaline Phosphatase 48 U/L (38-126); Aspartate Aminotransferase 25 IU/L (14-36); Bilirubin Total 0.4 mg/dL (0.2-1.3); Bilirubin Unconjugated 0.3 mg/dL (0.0-1.1); Globulin 2.8 g/dL (1.7-4.1); HEMOLYSIS < 15 (0-50); Total Protein 7.2 g/dL (6.3-8.2)
[2018-11-13 17:00] LABS: Free T3, Triiodothyronine Free 4.07 pg/mL (2.77-5.27); Free T4, Direct Thyroxine 0.98 ng/dL (0.78-2.19)
[2018-11-13 17:13] LABS: Thyroid Stimulating Hormone 3.14 uIU/mL (0.47-4.68)
== END ==
PROVIDERS: Family Provider Internal Medicine; PCP Internal Medicine; Visit Provider Internal Medicine Endocrinology, Diabetes & Metabolism
DX: R94.6 Abnormal results of thyroid function studies (principal); E05.90 Thyrotoxicosis, unspecified without thyrotoxic crisis or storm; E04.1 Nontoxic single thyroid nodule
CPT/HCPCS: 36415; 80076; 84439; 84443; 84481; 85025

== ENCOUNTER → 2018-11-26 09:32 | Outpatient (CLI) | payer MEDICARE, OTHER, SELFPAY ==
--- NOTE | 2018-11-26 | DI.US.S_ITS ---
PROCEDURE: US THYROID INDICATIONS: NONTOXIC SINGLE THYROID NODULE TECHNIQUE: Real-time scanning was performed of the thyroid gland, with image documentation. COMPARISON: [facility], US, US THYROID, 12/03/2017, 10:51. FINDINGS: Right: Thyroid lobe measures 4.8 x 1.5 x 1.7 cm, and is homogeneous in echotexture. Left: Thyroid lobe measures 3.4 x 1.1 x 1.4 cm, and is homogenous in echotexture. Isthmus: 3.0 mm thick. Nodule number: 1 Location: Right superior Size: Unchanged at 0.8 x 0.6 x 0.6 cm. Composition: Solid Echogenicity: Hypoechoic Shape: wider than tall. Margins: Smooth Echogenic foci: Internal echogenic punctate foci Total points: 7 ACR TI-RADS category: Highly suspicious Nodule number: 2 Location: Right isthmus Size: Unchanged at 0.6 x 0.3 x 0.6 cm. Composition: Cystic Echogenicity: Anechoic Shape: wider than tall. Margins: Smooth Echogenic foci: None Total points: 0 ACR TI-RADS category: Benign Nodule number: 3 Location: Right mid inferior Size: Unchanged at 0.5 x 0.3 x 0.4 cm Composition: Solid Echogenicity: Hypoechoic Shape: wider than tall. Margins: Smooth Echogenic foci: Internal punctate echogenic foci Total points: 7 ACR TI-RADS category: Highly suspicious IMPRESSION: Stable appearance of right thyroid nodules. Given the small size, no fine-needle aspiration is recommended at this time; however continued sonographic surveillance is recommended as detailed below. ACR TI-RADS definitions and recommendations: TI-RADS 1 (benign): 0 points. FNA not needed. TI-RADS 2 (not suspicious): 2 points. FNA not needed. TI-RADS 3 (mildly suspicious): 3 points. * FNA if 2.5 cm or larger, follow up if 1.5 cm or larger (at 1, 3, and 5 years). TI-RADS 4 (moderately suspicious): 4-6 points. * FNA if 1.5 cm or larger, follow up if 1 cm or larger (at 1, 2, 3, and 5 years). TI-RADS 5 (highly suspicious): 7 points or more. * FNA if 1 cm or larger, follow up if 0.5 cm or larger (every year for 5 years). Dictated by: Luis PATEL Interpreted: Maggie Dowd MD on 11/26/2018 at 10:48 Approved by: Maggie Dowd M.D. on 11/26/2018 at 12:48
== END ==
PROVIDERS: Family Provider Internal Medicine; PCP Internal Medicine; Visit Provider Internal Medicine Endocrinology, Diabetes & Metabolism
DX: E04.2 Nontoxic multinodular goiter (principal)
CPT/HCPCS: 76536

== ENCOUNTER → 2018-12-28 11:57 | Outpatient (CLI) | payer MEDICARE, OTHER, SELFPAY ==
[2018-12-28 12:43] LABS: Add Manual Diff / Slide Review NO; Basophils Absolute Auto 200 /uL (0-100); Basophils Percent Auto 2.3 % (0-2); Eosinophils Absolute Auto 100 /uL (0-450); Eosinophils Percent Auto 2.2 % (2-4); Hematocrit 41.6 % (36-46); Hemoglobin 14.2 g/dL (12.0-16.0); Lymphocytes Absolute Auto 1800 /uL (1100-4500); Lymphocytes Percent Auto 27.2 % (25-40); Mean Corpuscular HGB Conc 34.1 % (30-36); Monocytes Absolute Auto 500 /uL (0-900); Monocytes Percent Auto 7.7 % (3-14); Neutrophils Absolute Auto 4000 /uL (1500-7000); Neutrophils Percent Auto 60.6 % (50-75); Platelet Count 259 X10^3/uL (150-400); Red Blood Cell Count 4.57 X10^6/uL (4.0-5.2); Red Cell Distribution Width 13.2 % (11.6-14.8); White Blood Cell Count 6.6 X10^3/uL (4.5-11.0)
[2018-12-28 12:55] LABS: Alanine Aminotransferase 20 IU/L (<35); Albumin 4.5 g/dL (3.5-5.0); Albumin Globulin Ratio 1.8 (1.0-2.8); Alkaline Phosphatase 45 U/L (38-126); Aspartate Aminotransferase 26 IU/L (14-36); Bilirubin Total 0.7 mg/dL (0.2-1.3); Bilirubin Unconjugated 0.5 mg/dL (0.0-1.1); Globulin 2.5 g/dL (1.7-4.1); HEMOLYSIS < 15 (0-50)
[2018-12-28 13:12] LABS: Free T3, Triiodothyronine Free 3.37 pg/mL (2.77-5.27); Free T4, Direct Thyroxine 0.92 ng/dL (0.78-2.19)
[2018-12-30 16:07] LABS: Blood Urea Nitrogen 16 mg/dL (7-17); Calcium 9.5 mg/dL (8.4-10.2); Carbon Dioxide 26 mmol/L (22-32); Chloride 104 mmol/L (98-107); Estimated Glomerular Filt Rate > 60.0 mL/min (>60); Glucose 106 mg/dL (80-110); Magnesium 2.2 mg/dL (1.6-2.3); Potassium 4.4 mmol/L (3.4-5.1); Sodium 141 mmol/L (137-145)
== END ==
PROVIDERS: PCP Internal Medicine; Visit Provider Internal Medicine Endocrinology, Diabetes & Metabolism
DX: E05.90 Thyrotoxicosis, unspecified without thyrotoxic crisis or storm (principal); R00.2 Palpitations
CPT/HCPCS: 36415; 80048; 80076; 83735; 84439; 84443; 84481; 85025

== ENCOUNTER → 2019-01-14 08:36 | Outpatient (CLI) | payer MEDICARE, OTHER, SELFPAY ==
[2019-01-14 10:11] LABS: Cholesterol 204 mg/dL (140-199); HDL Cholesterol 46 mg/dL (40-60); LDL Cholesterol Calculated 133 mg/dL (<100); Triglycerides 125 mg/dL (35-150)
== END ==
PROVIDERS: PCP Internal Medicine; Visit Provider Internal Medicine
DX: E78.5 Hyperlipidemia, unspecified (principal)
CPT/HCPCS: 36415; 80061

== ENCOUNTER → 2019-01-21 10:28 | Outpatient (CLI) | payer MEDICARE, OTHER, SELFPAY ==
[2019-01-21 12:24] LABS: Free T3, Triiodothyronine Free 3.22 pg/mL (2.77-5.27)
[2019-01-21 12:38] LABS: Thyroid Stimulating Hormone 1.94 uIU/mL (0.47-4.68)
== END ==
PROVIDERS: PCP Internal Medicine; Visit Provider Internal Medicine Endocrinology, Diabetes & Metabolism
DX: R00.2 Palpitations (principal); R00.0 Tachycardia, unspecified; E04.1 Nontoxic single thyroid nodule; E05.90 Thyrotoxicosis, unspecified without thyrotoxic crisis or storm
CPT/HCPCS: 36415; 84439; 84443; 84481

== ENCOUNTER → 2019-01-24 08:27 | Outpatient (CLI) | payer MEDICARE, OTHER, SELFPAY ==
[2019-01-24 10:12] LABS: Cortisol AM (Before 10AM) 7.49 ug/dL (4.46-22.7)
== END ==
PROVIDERS: Family Provider Internal Medicine; PCP Internal Medicine; Visit Provider Internal Medicine Endocrinology, Diabetes & Metabolism
DX: E05.90 Thyrotoxicosis, unspecified without thyrotoxic crisis or storm (principal); R00.2 Palpitations
CPT/HCPCS: 36415; 82533

== ENCOUNTER → 2019-01-28 08:20 | Outpatient (CLI) | payer MEDICARE, OTHER, SELFPAY ==
[2019-01-28 10:55] LABS: Collection Time Urine 24 Hours; Creatinine 24 Hour Urine 1210 mg/day (800-1800); Total Volume Urine 2200 mL
[2019-02-04 09:44] LABS: Total Volume 2200 mL; Urine, Metanephrine 70 mcg/24 h (90-315); Urine, Normetanephrine 248 mcg/24 h (122-676)
== END ==
PROVIDERS: Family Provider Internal Medicine; PCP Internal Medicine; Visit Provider Internal Medicine Endocrinology, Diabetes & Metabolism
DX: R00.2 Palpitations (principal); E05.90 Thyrotoxicosis, unspecified without thyrotoxic crisis or storm
CPT/HCPCS: 82570; 83835

== ENCOUNTER → 2019-02-14 10:40 | Outpatient (CLI) | payer MEDICARE, OTHER, SELFPAY ==
[2019-02-14 11:36] LABS: Add Manual Diff / Slide Review NO; Basophils Absolute Auto 100 /uL (0-100); Basophils Percent Auto 0.8 % (0-2); Eosinophils Absolute Auto 100 /uL (0-450); Eosinophils Percent Auto 1.3 % (2-4); Hematocrit 41.3 % (36-46); Hemoglobin 13.8 g/dL (12.0-16.0); Lymphocytes Absolute Auto 1400 /uL (1100-4500); Lymphocytes Percent Auto 15.8 % (25-40); Mean Corpuscular HGB Conc 33.3 % (30-36); Mean Corpuscular Hemoglobin 30.9 PG (26-34); Mean Corpuscular Volume 92.7 fL (80-100); Monocytes Absolute Auto 600 /uL (0-900); Monocytes Percent Auto 6.4 % (3-14); Neutrophils Absolute Auto 6600 /uL (1500-7000); Neutrophils Percent Auto 75.7 % (50-75); Platelet Count 236 X10^3/uL (150-400); Red Blood Cell Count 4.46 X10^6/uL (4.0-5.2); White Blood Cell Count 8.7 X10^3/uL (4.5-11.0)
[2019-02-14 12:20] LABS: Free T3, Triiodothyronine Free 3.42 pg/mL (2.77-5.27); Free T4, Direct Thyroxine 1.01 ng/dL (0.78-2.19)
[2019-02-14 13:03] LABS: Thyroid Stimulating Hormone 2.63 uIU/mL (0.47-4.68)
== END ==
PROVIDERS: PCP Internal Medicine; Visit Provider Internal Medicine Endocrinology, Diabetes & Metabolism
DX: E05.90 Thyrotoxicosis, unspecified without thyrotoxic crisis or storm (principal); R00.2 Palpitations
CPT/HCPCS: 36415; 84439; 84443; 84481; 85025

== ENCOUNTER → 2019-04-23 08:06 | Outpatient (CLI) | payer MEDICARE, OTHER, SELFPAY ==
[2019-04-23 08:56] LABS: Add Manual Diff / Slide Review NO; Basophils Absolute Auto 100 /uL (0-100); Basophils Percent Auto 1.1 % (0-2); Eosinophils Absolute Auto 100 /uL (0-450); Eosinophils Percent Auto 2.4 % (2-4); Hemoglobin 13.9 g/dL (12.0-16.0); Lymphocytes Absolute Auto 1300 /uL (1100-4500); Lymphocytes Percent Auto 20.9 % (25-40); Mean Corpuscular HGB Conc 33.1 % (30-36); Mean Corpuscular Hemoglobin 30.7 PG (26-34); Mean Corpuscular Volume 92.7 fL (80-100); Monocytes Absolute Auto 500 /uL (0-900); Monocytes Percent Auto 7.4 % (3-14); Neutrophils Absolute Auto 4200 /uL (1500-7000); Neutrophils Percent Auto 68.2 % (50-75); Platelet Count 235 X10^3/uL (150-400); Red Blood Cell Count 4.53 X10^6/uL (4.0-5.2); White Blood Cell Count 6.2 X10^3/uL (4.5-11.0)
[2019-04-23 09:34] LABS: Alanine Aminotransferase 20 IU/L (<35); Albumin 4.5 g/dL (3.5-5.0); Albumin Globulin Ratio 1.7 (1.0-2.8); Alkaline Phosphatase 47 U/L (38-126); Aspartate Aminotransferase 26 IU/L (14-36); Bilirubin Total 0.5 mg/dL (0.2-1.3); Bilirubin Unconjugated 0.5 mg/dL (0.0-1.1); Blood Urea Nitrogen 17 mg/dL (7-17); Calcium 9.6 mg/dL (8.4-10.2); Carbon Dioxide 25 mmol/L (22-32); Chloride 105 mmol/L (98-107); Cholesterol 180 mg/dL (140-199); Estimated Glomerular Filt Rate > 60.0 mL/min (>60); Globulin 2.6 g/dL (1.7-4.1); Glucose 97 mg/dL (80-110); HDL Cholesterol 53 mg/dL (40-60); HEMOLYSIS < 15 (0-50); LDL Cholesterol Calculated 106 mg/dL (<100); Potassium 4.2 mmol/L (3.4-5.1); Sodium 139 mmol/L (137-145); Total Protein 7.1 g/dL (6.3-8.2); Triglycerides 107 mg/dL (35-150)
[2019-04-23 09:48] LABS: Free T3, Triiodothyronine Free 3.38 pg/mL (2.77-5.27); Free T4, Direct Thyroxine 0.91 ng/dL (0.78-2.19)
[2019-04-23 10:01] LABS: Thyroid Stimulating Hormone 3.91 uIU/mL (0.47-4.68)
== END ==
PROVIDERS: PCP Internal Medicine; Referring Provider Internal Medicine Endocrinology, Diabetes & Metabolism; Visit Provider Internal Medicine Endocrinology, Diabetes & Metabolism
DX: E78.5 Hyperlipidemia, unspecified (principal); R07.9 Chest pain, unspecified; E05.90 Thyrotoxicosis, unspecified without thyrotoxic crisis or storm
CPT/HCPCS: 36415; 80048; 80061; 80076; 84439; 84443; 84481; 85025

== ENCOUNTER → 2019-04-24 15:30 | Outpatient (CLI) | payer MEDICARE, OTHER, SELFPAY ==
--- NOTE | 2019-04-24 | DI.CT.S_ITS ---
PROCEDURE: CT ANGIO CHEST INDICATIONS: Chest pain, unspecified TECHNIQUE: After the administration of intravenous contrast, 2 mm thick sections acquired from the pulmonary apices to the posterior costophrenic angles. 3-dimensional maximum intensity projection (MIP) coronal and sagittal reformats were then acquired through the thorax. For radiation dose reduction, the following was used: automated exposure control, adjustment of mA and/or kV according to patient size. COMPARISON: None. FINDINGS: Image quality: Excellent. Pulmonary arteries: Pulmonary arteries are normal in size, and demonstrate no intraluminal filling defects to suggest central pulmonary embolism. Lungs and pleura: Lungs are clear. No pleural effusions or pneumothorax. Central and peripheral airways are patent. Mediastinum: Heart size is normal, without pericardial effusion. No mediastinal or hilar adenopathy. Thoracic aorta is normal in caliber and enhancement. Esophagus is normal in caliber, without hiatal hernia. Bones and chest wall: A 7 mm circumscribed low density masses present within the left breast (series 4/image 46). No suspicious bony lesions. Ribs and thoracic spine appear intact throughout. Thyroid gland is unremarkable. No axillary or supraclavicular adenopathy. Abdomen: Visualized upper abdominal solid organs appear normal in the early arterial phase of enhancement. IMPRESSION: 1. No acute pulmonary embolus. 2. Questionable left breast mass versus cyst. Nonemergent mammogram and ultrasound recommended to further characterize finding. Dictated by: Sudha Forrester M.D. on 04/24/2019 at 17:19 Approved by: Sudha Forrester M.D. on 04/24/2019 at 17:22
== END ==
PROVIDERS: PCP Internal Medicine; Referring Provider Internal Medicine; Visit Provider Internal Medicine
DX: R07.9 Chest pain, unspecified (principal); N64.9 Disorder of breast, unspecified
CPT/HCPCS: 71275

== ENCOUNTER → 2019-07-29 09:21 | Outpatient (CLI) | payer MEDICARE, OTHER, SELFPAY ==
[2019-07-29 10:10] LABS: Add Manual Diff / Slide Review NO; Basophils Absolute Auto 100 /uL (0-100); Basophils Percent Auto 1.1 % (0-2); Eosinophils Absolute Auto 100 /uL (0-450); Eosinophils Percent Auto 2.2 % (2-4); Hematocrit 42.6 % (36-46); Hemoglobin 14.6 g/dL (12.0-16.0); Lymphocytes Absolute Auto 1500 /uL (1100-4500); Lymphocytes Percent Auto 21.7 % (25-40); Mean Corpuscular HGB Conc 34.2 % (30-36); Mean Corpuscular Hemoglobin 31.7 PG (26-34); Mean Corpuscular Volume 92.6 fL (80-100); Monocytes Absolute Auto 500 /uL (0-900); Monocytes Percent Auto 7.7 % (3-14); Neutrophils Absolute Auto 4600 /uL (1500-7000); Neutrophils Percent Auto 67.3 % (50-75); Platelet Count 220 X10^3/uL (150-400); Red Cell Distribution Width 12.9 % (11.6-14.8); White Blood Cell Count 6.7 X10^3/uL (4.5-11.0)
[2019-07-29 10:38] LABS: Alanine Aminotransferase 21 IU/L (<35); Albumin 4.4 g/dL (3.5-5.0); Albumin Globulin Ratio 1.8 (1.0-2.8); Alkaline Phosphatase 48 U/L (38-126); Aspartate Aminotransferase 26 IU/L (14-36); BUN Creatinine Ratio 17.4 (6-22); Bilirubin Total 0.5 mg/dL (0.2-1.3); Blood Urea Nitrogen 15 mg/dL (7-17); Carbon Dioxide 24 mmol/L (22-32); Chloride 105 mmol/L (98-107); Estimated Glomerular Filt Rate > 60.0 mL/min (>60); Globulin 2.5 g/dL (1.7-4.1); Glucose 96 mg/dL (80-110); HEMOLYSIS < 15 (0-50); Potassium 4.5 mmol/L (3.4-5.1); Sodium 137 mmol/L (137-145); Total Protein 6.9 g/dL (6.3-8.2)
[2019-07-29 10:53] LABS: Free T4, Direct Thyroxine 0.84 ng/dL (0.78-2.19)
[2019-07-29 11:06] LABS: Thyroid Stimulating Hormone 1.89 uIU/mL (0.47-4.68)
[2019-07-30 15:36] LABS: Triiodothyronine T3 Total 96 ng/dL (71-180)
== END ==
PROVIDERS: PCP Internal Medicine; Referring Provider Internal Medicine Endocrinology, Diabetes & Metabolism; Visit Provider Internal Medicine Endocrinology, Diabetes & Metabolism
DX: E05.90 Thyrotoxicosis, unspecified without thyrotoxic crisis or storm (principal)
CPT/HCPCS: 36415; 80053; 84439; 84443; 84480; 85025

== ENCOUNTER → 2019-12-11 10:31 | Outpatient (CLI) | payer MEDICARE, OTHER, SELFPAY ==
--- NOTE | 2019-12-11 10:34 | DI.US.S_ITS ---
PROCEDURE: US PELVIC COMPLETE INDICATIONS: PMB TECHNIQUE: Real-time scanning was performed of the pelvic organs, with image documentation. Additional endovaginal scanning was necessary due to incomplete visualization of the adnexal and endometrial structures by transabdominal scanning. COMPARISON: [facility], , PELVIC COMPLETE, 06/01/2015, 15:00. FINDINGS: Transabdominal scanning: Limited scanning through the kidneys shows no hydronephrosis. No pathologic free abdominal or pelvic fluid. Endovaginal scanning: Uterus: Uterus is normal in size at 8.5 x 3.9 x 5.4 cm. The endometrium measures 6.6 mm in combined thickness. There is a trace amount of endometrial fluid. Ovaries: Not visualized. IMPRESSION: 1. Endometrium appears thickened with trace endometrial fluid. The findings are abnormal in a postmenopausal woman. Recommend gynecological follow-up and endometrial sampling if clinically indicated. 2. Nonvisualization of ovaries. Dictated by: Abner Piña M.D. on 12/11/2019 at 12:02 Approved by: Abner Piña M.D. on 12/11/2019 at 12:07
== END ==
PROVIDERS: PCP Internal Medicine; Referring Provider Obstetrics & Gynecology; Visit Provider Obstetrics & Gynecology
DX: N95.0 Postmenopausal bleeding (principal)
CPT/HCPCS: 76830; 76856

== ENCOUNTER → 2019-12-24 15:15 | Outpatient (CLI) | payer MEDICARE, OTHER, SELFPAY ==
[2019-12-24 16:08] LABS: Add Manual Diff / Slide Review NO; Basophils Absolute Auto 0 /uL (0-100); Basophils Percent Auto 0.4 % (0-2); Eosinophils Absolute Auto 100 /uL (0-450); Eosinophils Percent Auto 0.8 % (2-4); Hemoglobin 13.5 g/dL (12.0-16.0); Lymphocytes Absolute Auto 1300 /uL (1100-4500); Mean Corpuscular HGB Conc 33.8 % (30-36); Mean Corpuscular Hemoglobin 30.7 PG (26-34); Mean Corpuscular Volume 90.8 fL (80-100); Monocytes Absolute Auto 800 /uL (0-900); Monocytes Percent Auto 9.1 % (3-14); Neutrophils Absolute Auto 6400 /uL (1500-7000); Neutrophils Percent Auto 74.7 % (50-75); Platelet Count 246 X10^3/uL (150-400); Red Cell Distribution Width 12.7 % (11.6-14.8); White Blood Cell Count 8.5 X10^3/uL (4.5-11.0)
[2019-12-24 16:23] LABS: Alanine Aminotransferase 38 IU/L (<35); Albumin 4.2 g/dL (3.5-5.0); Albumin Globulin Ratio 1.5 (1.0-2.8); Alkaline Phosphatase 54 U/L (38-126); Aspartate Aminotransferase 38 IU/L (14-36); BUN Creatinine Ratio 16.9 (6-22); Bilirubin Total 0.5 mg/dL (0.2-1.3); Blood Urea Nitrogen 11 mg/dL (7-17); Calcium 8.9 mg/dL (8.4-10.2); Carbon Dioxide 32 mmol/L (22-32); Chloride 105 mmol/L (98-107); Estimated Glomerular Filt Rate > 60.0 mL/min (>60); Globulin 2.8 g/dL (1.7-4.1); Glucose 86 mg/dL (80-110); HEMOLYSIS < 15 (0-50); Potassium 3.9 mmol/L (3.4-5.1); Sodium 139 mmol/L (137-145)
[2019-12-24 16:41] LABS: Free T4, Direct Thyroxine 1.14 ng/dL (0.78-2.19)
[2019-12-24 16:55] LABS: Thyroid Stimulating Hormone 1.21 uIU/mL (0.47-4.68)
[2019-12-25 06:36] LABS: Triiodothyronine T3 Total 100 ng/dL (71-180)
== END ==
PROVIDERS: PCP Internal Medicine; Referring Provider Internal Medicine Endocrinology, Diabetes & Metabolism; Visit Provider Internal Medicine Endocrinology, Diabetes & Metabolism
DX: E04.1 Nontoxic single thyroid nodule (principal); E05.90 Thyrotoxicosis, unspecified without thyrotoxic crisis or storm
CPT/HCPCS: 36415; 80053; 84439; 84443; 84480; 85025

== ENCOUNTER → 2020-01-23 14:40 | Outpatient (CLI) | payer MEDICARE, OTHER, SELFPAY ==
--- NOTE | 2020-01-23 14:42 | DI.US.S_ITS ---
PROCEDURE: US THYROID INDICATIONS: NONTOXIC UNINODULAR GOITER TECHNIQUE: Real-time scanning was performed of the thyroid gland, with image documentation. COMPARISON: [facility], US, US THYROID, 11/26/2018, 9:53. FINDINGS: Right: Thyroid lobe measures 5.0 x 1.7 x 1.7 cm, and is homogeneous in echotexture. Left: Thyroid lobe measures 4.0 x 1.0 x 1.5 cm, and is homogenous in echotexture. Isthmus: 2-3 mm thick. There are scattered subcentimeter colloid cyst. Nodule number: 1 Location: Upper pole of the right lobe Size: 0.8 x 0.7 x 0.7 cm. No interval change Composition: Solid Echogenicity: Hypoechoic Shape: wider than tall. Margins: Smooth Echogenic foci: None Total points: 4 ACR TI-RADS category: Moderately suspicious Nodule number: 2 Location: Medial right lobe/isthmus Size: 0.6 x 0.4 x 0.4 cm. Previously 0.5 x 0.5 x 0.3 Composition: Cystic Echogenicity: Hypoechoic Shape: wider than tall. Margins: Smooth Echogenic foci: Peripheral calcifications Total points: 4 ACR TI-RADS category: Moderately suspicious IMPRESSION: Right thyroid nodules as above. No further follow-up required based on consensus criteria below. ACR TI-RADS definitions and recommendations: TI-RADS 1 (benign): 0 points. FNA not needed. TI-RADS 2 (not suspicious): 2 points. FNA not needed. TI-RADS 3 (mildly suspicious): 3 points. * FNA if 2.5 cm or larger, follow up if 1.5 cm or larger (at 1, 3, and 5 years). TI-RADS 4 (moderately suspicious): 4-6 points. * FNA if 1.5 cm or larger, follow up if 1 cm or larger (at 1, 2, 3, and 5 years). TI-RADS 5 (highly suspicious): 7 points or more. * FNA if 1 cm or larger, follow up if 0.5 cm or larger (every year for 5 years). Dictated by: Rey Lew M.D. on 01/23/2020 at 17:16 Approved by: Rey Lew M.D. on 01/23/2020 at 17:20
== END ==
PROVIDERS: PCP Internal Medicine; Referring Provider Internal Medicine Endocrinology, Diabetes & Metabolism; Visit Provider Internal Medicine Endocrinology, Diabetes & Metabolism
DX: E04.2 Nontoxic multinodular goiter (principal)
CPT/HCPCS: 76536

== ENCOUNTER → 2020-02-10 13:17 | Outpatient (CLI) | payer MEDICARE, OTHER, SELFPAY ==
[2020-02-10 14:27] LABS: BUN Creatinine Ratio 16.2 (6-22); Blood Urea Nitrogen 11 mg/dL (7-17); Estimated Glomerular Filt Rate > 60.0 mL/min (>60)
== END ==
PROVIDERS: PCP Internal Medicine; Referring Provider Internal Medicine Gastroenterology; Visit Provider Internal Medicine Gastroenterology
DX: R63.4 Abnormal weight loss (principal)
CPT/HCPCS: 36415; 82565; 84520

== ENCOUNTER → 2020-02-17 08:53 | Outpatient (CLI) | payer MEDICARE, OTHER, SELFPAY ==
--- NOTE | 2020-02-17 | DI.CT.S_ITS ---
PROCEDURE: CT ABDOMEN PELVIS W CON INDICATIONS: generalized abdominal pain, abnormal weight loss TECHNIQUE: After the administration of oral and intravenous contrast, 5 mm thick sections acquired from the diaphragms to the symphysis. 5 mm thick coronal and sagittal reformats were performed. For radiation dose reduction, the following was used: automated exposure control, adjustment of mA and/or kV according to patient size. COMPARISON: [facility], MR, L-SPINE WITHOUT CONTRAST, 11/21/2016, 18:03. [facility], US, ABDOMEN COMPLETE, 04/26/2015, 9:20. [facility], US, US PELVIC COMPLETE, 12/11/2019, 10:55. [facility], CT, CT ANGIO CHEST, 04/24/2019, 15:35. FINDINGS: Image quality: Excellent. ABDOMEN: Lung bases: Lung bases are clear. Heart size is normal. Solid organs: There is a 3.7 x 3.2 cm mass in the left hepatic lobe with irregular enhancement. There is a 5 mm low-density nodule in the left hepatic lobe, most likely a cyst. Liver is normal in size and enhancement. Gallbladder is surgically absent. There is mild intrahepatic biliary dilation. Common bile duct measures up to 8 mm, most likely related to cholecystectomy. Pancreas enhances normally. Spleen is normal in size and enhancement. No adrenal nodules. Kidneys are normal in size and enhancement, without hydronephrosis. Peritoneum and bowel: There is a large amount of stool in colon. Stomach, small bowel, and colon loops are normal in caliber and wall thickness. No free fluid or air. Nodes and vessels: No retroperitoneal or mesenteric adenopathy. Aorta and inferior vena cava are normal in caliber. Miscellaneous: No ventral hernias. PELVIS: Genitourinary: Bladder wall thickness is normal. Uterus is normal. No adnexal mass. Miscellaneous: No inguinal hernias or adenopathy. Bones: No suspicious bony lesions. Severe degenerative disease at L4-L5. No vertebral body compression fractures. IMPRESSION: 1. A 3.7 x 3.2 cm mass in the left lateral lobe demonstrating irregular enhancement. The comparison CT dated 04/24/2019 showed nodular peripheral enhancement during arterial phase suggesting a hepatic hemangioma. A comparison ultrasound dated 04/26/2015 demonstrated a heterogeneous hypoechoic mass in the area without typical appearance of a hepatic hemangioma. Given relative stability of the mass since 2015, it is most likely an atypical hemangioma but malignant neoplasm is not completely excluded. A liver protocol MRI or CT would be helpful. 2. A large amount of stool in colon. Dictated by: Abner Piña M.D. on 02/17/2020 at 11:26 Approved by: Abner Piña M.D. on 02/17/2020 at 13:23
== END ==
PROVIDERS: PCP Internal Medicine; Referring Provider Internal Medicine Gastroenterology; Visit Provider Internal Medicine Gastroenterology
DX: R10.84 Generalized abdominal pain (principal); R63.4 Abnormal weight loss; K83.8 Other specified diseases of biliary tract; R16.0 Hepatomegaly, not elsewhere classified; Z90.49 Acquired absence of other specified parts of digestive tract
CPT/HCPCS: 74177; Q9967

== ENCOUNTER → 2020-02-23 13:22 | Outpatient (CLI) | payer MEDICARE, OTHER, SELFPAY ==
[2020-02-23 14:44] LABS: COVID19 -Nasal RAPID Negative (Negative)
== END ==
PROVIDERS: PCP Internal Medicine; Visit Provider Physician Assistant
DX: Z01.812 Encounter for preprocedural laboratory examination (principal); Z20.822 Contact with and (suspected) exposure to COVID-19
CPT/HCPCS: 87635; C9803

== ENCOUNTER 2020-02-25 11:23 | Day surgery (SDC) | payer MEDICARE, OTHER, SELFPAY ==
[2020-02-25] VITALS (7 sets, daily range): BP systolic 101–120; BP diastolic 41–63; PULSE 50–66; RESP 10–16; TEMP 36.4–37.2; O2SAT 96–100; BMI 27.1
--- NOTE | 2020-02-25 | PATH_ITS ---
[facility] Accession Number: [id number] . 01 Material submitted: . PART A: duodenum - DUODENAL BIOPSY PART B: gastrointestinal site - STOMACH BIOPSY PART C: esophagus - ESOPHAGEAL BIOPSY . 01 Clinical history: . A. R/O CELIAC B. R/O H. PYLORI C. R/O MOSQUERA'S . 02 Diagnosis: A. Duodenum, Biopsy: Duodenal mucosa with no diagnostic abnormality. Negative for active inflammation, features of sprue, dysplasia, or malignancy. . B. Stomach, Biopsy: Gastric antral mucosa with mild chronic inflammation. Negative for Helicobacter organisms by immunohistochemistry. Negative for intestinal metaplasia. Negative for dysplasia or malignancy. . C. Esophagus, Biopsy: Squamocolumnar junctional mucosa with specialized intestinal metaplasia, consistent with Mosquera's esophagus. Negative for dysplasia and malignancy. [facility] 03/01/2020 1406 Local . 02 Electronically signed: . Phoenix Gil MD, PhD, Pathologist NPI- [id number] . 01 Gross description: . Part A: DUODENAL BIOPSY: Received in formalin is 1 fragment(s) of devlin, soft tissue measuring 0.3 x 0.2 x 0.2 cm submitted entirely in 1 cassette(s) Part B: STOMACH BIOPSY: Received in formalin are 3 fragment(s) of devlin, soft tissue measuring 0.1 x 0.1 x 0.1 cm to 0.2 x 0.2 x 0.1 cm submitted entirely in 1 cassette(s) Part C: ESOPHAGEAL BIOPSY: Received in formalin are 4 fragment(s) of devlin, soft tissue measuring 0.1 x 0.1 x 0.1 cm to 0.2 x 0.2 x 0.1 cm submitted entirely in 1 cassette(s) /JENSEN 02/26/[id number] Local . 02 Microscopic: . Part B: An immunohistochemical stain was performed to evaluate for Helicobacter organisms and is negative. The control stain showed appropriate reactivity. . * This test was developed and its performance characteristics determined by [facility]. It has not been cleared or approved by the U.S. Food and Drug Administration. The FDA has determined that such clearance or approval is not necessary. This test is used for clinical purposes. It should not be regarded as investigational or for research. . 02 Pathologist provided ICD-10: R63.4, R19.4, K29.70, K22.70 . 02 CPT . 576687, 228479, 057680, [id number] Performed at: 01 [facility] [address] [facility], [place], [place] [id number] MD Zac Mitchell MD Phone: [phone] Performed at: 02 [facility] [place] [address] [place], [place] [id number] MD Natividad Sanches MD Phone: [phone]
--- NOTE | 2020-02-25 12:59 | PM.PREOP ---
Pre-operative Note COVID-19 COVID-19 status: Negative Interval Note History & Physical reviewed/Exam performed by Physician: Yes Changes to H&P: No ASA Class (for procedural sedation): II
--- NOTE | 2020-02-25 12:59 | PM.OP.ENDO ---
Operative Date/Time/Diagnoses Date of procedure: 02/25/20 Pre-op diagnosis: See indication and findings Procedure & Clinicians Study performed: EGD Same procedure as scheduled: Yes Indications: GE reflux, nausea, weight loss, abdominal pain Surgeon: Coy Lopez Procedure Notes Procedure in detail: After informed consent was obtained the patient was placed in the left lateral decubitus position. Video upper scope placed into the oropharynx and under direct visualization passed into the esophagus. The esophagus stomach and duodenum were carefully examined. On withdrawal, retroflexed view the GE junction was performed. The scope was removed. The patient tolerated procedure well. Blood loss none Complications none Sedation Total sedation time 11 minutes Versed 4 mg fentanyl 100 micro g IV titration Findings One. Normal body of the esophagus until GE junction. Here there were 3 tongues of abnormal tissue extending up above the squamocolumnar junction 1 to 1-1/2 cm. These were above the GE folds. Biopsies were taken to rule out Crews's esophagus. 2. Small sliding hiatal hernia Three. Patchy gastric erythema in the antrum in particular biopsies taken to rule out Helicobacter Four. Normal duodenal bulb and sweep biopsies taken to rule out celiac disease Hector will be informed of biopsy results by telephone and then Dr. Byers can decide whether not he wants to proceed with colonoscopy.
[2020-02-25] MEDS: fentaNYL 250 MCG/5 ML INJ IV (13:07)
[2020-02-25] MEDS: MIDAZOLAM 5 MG/5 ML VIAL IV (13:11)
--- NOTE | 2020-02-25 13:51 | SUR.PHASEII ---
Pt awake, drowsy, light-headed; desires to rest and enjoy her drink before going home. VSS
== END 2020-02-25 14:10 | disposition home or self-care (01) ==
PROVIDERS: PCP Internal Medicine; Referring Provider Internal Medicine Gastroenterology; Visit Provider Internal Medicine Gastroenterology
PROC: 0DJ08ZZ Inspection of Upper Intestinal Tract, Via Natural or Artificial Opening Endoscopic (ICD-10-PCS; CPT 43235; principal; 2020-02-25 12:30)
DX: K29.50 Unspecified chronic gastritis without bleeding (principal); K21.9 Gastro-esophageal reflux disease without esophagitis; E05.90 Thyrotoxicosis, unspecified without thyrotoxic crisis or storm; K44.9 Diaphragmatic hernia without obstruction or gangrene; K22.70 Barrett's esophagus without dysplasia
CPT/HCPCS: 43239; J2250; J3010

== ENCOUNTER → 2020-04-08 10:03 | Outpatient (CLI) | payer MEDICARE, OTHER, SELFPAY ==
[2020-04-08 10:48] LABS: Alanine Aminotransferase 35 IU/L (<35); Albumin 3.9 g/dL (3.5-5.0); Albumin Globulin Ratio 1.4 (1.0-2.8); Alkaline Phosphatase 49 U/L (38-126); Aspartate Aminotransferase 39 IU/L (14-36); Bilirubin Total 0.3 mg/dL (0.2-1.3); Bilirubin Unconjugated 0.3 mg/dL (0.0-1.1); Globulin 2.7 g/dL (1.7-4.1); HEMOLYSIS < 15 (0-50); Total Protein 6.6 g/dL (6.3-8.2)
[2020-04-08 10:53] LABS: Add Manual Diff / Slide Review NO; Basophils Absolute Auto 100 /uL (0-100); Basophils Percent Auto 1.3 % (0-2); Eosinophils Absolute Auto 500 /uL (0-450); Hematocrit 40.1 % (36-46); Hemoglobin 13.2 g/dL (12.0-16.0); Lymphocytes Absolute Auto 700 /uL (1100-4500); Lymphocytes Percent Auto 16.5 % (25-40); Mean Corpuscular HGB Conc 33.1 % (30-36); Mean Corpuscular Hemoglobin 30.2 PG (26-34); Mean Corpuscular Volume 91.5 fL (80-100); Monocytes Absolute Auto 700 /uL (0-900); Monocytes Percent Auto 15.5 % (3-14); Neutrophils Absolute Auto 2500 /uL (1500-7000); Neutrophils Percent Auto 55.7 % (50-75); Platelet Count 191 X10^3/uL (150-400); Red Blood Cell Count 4.38 X10^6/uL (4.0-5.2); Red Cell Distribution Width 13.1 % (11.6-14.8); White Blood Cell Count 4.5 X10^3/uL (4.5-11.0)
[2020-04-08 11:26] LABS: Free T3, Triiodothyronine Free 2.89 pg/mL (2.77-5.27); Free T4, Direct Thyroxine 0.92 ng/dL (0.78-2.19)
[2020-04-08 11:39] LABS: Thyroid Stimulating Hormone 2.31 uIU/mL (0.47-4.68)
== END ==
PROVIDERS: PCP Internal Medicine; Referring Provider Internal Medicine Endocrinology, Diabetes & Metabolism; Visit Provider Internal Medicine Endocrinology, Diabetes & Metabolism
DX: E05.90 Thyrotoxicosis, unspecified without thyrotoxic crisis or storm (principal); E04.1 Nontoxic single thyroid nodule
CPT/HCPCS: 36415; 80076; 84439; 84443; 84481; 85025

== ENCOUNTER → 2020-05-19 12:56 | Outpatient (CLI) | payer MEDICARE, OTHER, SELFPAY ==
[2020-05-19 14:23] LABS: Add Manual Diff / Slide Review NO; Basophils Absolute Auto 100 /uL (0-100); Basophils Percent Auto 1.5 % (0-2); Eosinophils Absolute Auto 200 /uL (0-450); Eosinophils Percent Auto 3.1 % (2-4); Hematocrit 39.7 % (36-46); Hemoglobin 13.4 g/dL (12.0-16.0); Lymphocytes Absolute Auto 1600 /uL (1100-4500); Lymphocytes Percent Auto 29.7 % (25-40); Mean Corpuscular HGB Conc 33.7 % (30-36); Mean Corpuscular Hemoglobin 30.9 PG (26-34); Mean Corpuscular Volume 91.7 fL (80-100); Monocytes Absolute Auto 400 /uL (0-900); Monocytes Percent Auto 8.4 % (3-14); Neutrophils Absolute Auto 3000 /uL (1500-7000); Neutrophils Percent Auto 57.3 % (50-75); Platelet Count 223 X10^3/uL (150-400); Red Blood Cell Count 4.33 X10^6/uL (4.0-5.2); Red Cell Distribution Width 13.2 % (11.6-14.8); White Blood Cell Count 5.3 X10^3/uL (4.5-11.0)
[2020-05-19 14:51] LABS: Alanine Aminotransferase 21 IU/L (<35); Albumin 4.3 g/dL (3.5-5.0); Albumin Globulin Ratio 1.5 (1.0-2.8); Alkaline Phosphatase 51 U/L (38-126); Aspartate Aminotransferase 30 IU/L (14-36); BUN Creatinine Ratio 12.5 (6-22); Bilirubin Total 0.3 mg/dL (0.2-1.3); Blood Urea Nitrogen 8 mg/dL (7-17); Calcium 9.5 mg/dL (8.4-10.2); Carbon Dioxide 26 mmol/L (22-32); Chloride 106 mmol/L (98-107); Estimated Glomerular Filt Rate > 60.0 mL/min (>60); Globulin 2.8 g/dL (1.7-4.1); Glucose 84 mg/dL (80-110); HEMOLYSIS < 15 (0-50); Potassium 4.3 mmol/L (3.4-5.1); Sodium 140 mmol/L (137-145); Total Protein 7.1 g/dL (6.3-8.2)
--- NOTE | 2020-05-19 15:24 | DI.CT.S_ITS ---
PROCEDURE: CT ABDOMEN PELVIS W CON INDICATIONS: RT LOWER QUADRANT PAIN TECHNIQUE: After the administration of oral and intravenous contrast, 5 mm thick sections acquired from the diaphragms to the symphysis. 5 mm thick coronal and sagittal reformats were performed. For radiation dose reduction, the following was used: automated exposure control, adjustment of mA and/or kV according to patient size. COMPARISON: [facility], CT, CT ABDOMEN PELVIS W CON, 02/17/2020, 9:44. FINDINGS: Image quality: Excellent. ABDOMEN: Lung bases: Lung bases are clear. Heart size is normal. Solid organs: Liver is normal in size . There is a low-density focus within the lateral segment left hepatic lobe measuring 38 mm which demonstrates peripheral nodular enhancement, as before. Gallbladder is surgically absent. Biliary system is non-dilated. Pancreas enhances normally. Spleen is normal in size and enhancement. No adrenal nodules. Kidneys are normal in size and enhancement, without hydronephrosis. Peritoneum and bowel: Stomach, small bowel, and colon loops are normal in caliber and wall thickness. No free fluid or air. Appendix is not seen. No evidence of appendicitis. Nodes and vessels: No retroperitoneal or mesenteric adenopathy. Aorta and inferior vena cava are normal in caliber. Miscellaneous: No ventral hernias. PELVIS: Genitourinary: Bladder wall thickness is normal. Miscellaneous: No inguinal hernias or adenopathy. Bones: No suspicious bony lesions. No vertebral body compression fractures. IMPRESSION: 1. No explanation for abdominal pain. 2. Appendix not seen. No evidence of appendicitis. 3. No change in left hepatic lobe hemangioma. Dictated by: Jac Noyola M.D. on 05/19/2020 at 15:28 Approved by: Jac Noyola M.D. on 05/19/2020 at 15:30
== END ==
PROVIDERS: PCP Internal Medicine; Referring Provider Internal Medicine; Visit Provider Internal Medicine
DX: R10.31 Right lower quadrant pain (principal); D18.09 Hemangioma of other sites
CPT/HCPCS: 36415; 74177; 80053; 85025; 87493; Q9967

== ENCOUNTER → 2020-06-16 09:02 | Outpatient (CLI) | payer MEDICARE, OTHER, SELFPAY ==
[2020-06-16 11:13] LABS: COVID19 -Nasal RAPID Negative (Negative)
== END ==
PROVIDERS: PCP Internal Medicine; Visit Provider Surgery
DX: Z20.822 Contact with and (suspected) exposure to COVID-19 (principal)
CPT/HCPCS: 87635; C9803

== ENCOUNTER 2020-06-17 06:26 | Day surgery (SDC) | payer MEDICARE, OTHER, SELFPAY ==
[2020-06-17] VITALS (8 sets, daily range): BP systolic 91–114; BP diastolic 43–68; PULSE 55–85; RESP 8–16; TEMP 36.4–36.8; O2SAT 95–99; BMI 25.2
--- NOTE | 2020-06-17 | PATH_ITS ---
[facility] Accession Number: [id number] . 01 Material submitted: . colon - RANDOM COLON . 01 Clinical history: . RULE OUT MICROSCOPIC COLITIS . 02 Diagnosis: Random Colon, Biopsies: Colonic mucosa with no diagnostic abnormality. Negative for active, chronic, and microscopic colitis. Negative for dysplasia and malignancy. . MRV 06/23/2020 1009 Local . 02 Electronically signed: . Phoenix Gil MD, PhD, Pathologist NPI- [id number] . 01 Gross description: . The specimen is received in formalin, labeled random colon and consists of multiple devlin fragments of soft tissue measuring 0.7 x 0.5 x 0.2 cm in aggregate. The specimen is filtered and entirely submitted in cassette A1. (EA:[id number]) /MRV 06/18/2020 1455 Local . 02 Pathologist provided ICD-10: R19.4 . 02 CPT . 907596 Performed at: 01 [facility] [address] [facility], [place], [place] [id number] MD Zac Mitchell MD Phone: [phone] Performed at: 02 [facility] [address] [place], [place] [id number] MD Natividad Sanches MD Phone: [phone]
--- NOTE | 2020-06-17 07:36 | PM.PREOP ---
Pre-operative Note COVID-19 COVID-19 status: Negative Result date/Date tested (Pos, Neg/Pending): 06/16/20 Interval Note History & Physical reviewed/Exam performed by Physician: Yes Changes to H&P: No ASA Class (for procedural sedation): II
[2020-06-17] MEDS: SODIUM CHLORIDE 0.9% 1,000 ML 200 ML IV (07:37)
--- NOTE | 2020-06-17 07:37 | P.OP.ENDO_ITS ---
Operative Date/Time/Diagnoses Date of procedure: 06/17/20 Time of procedure: 07:37 Pre-op diagnosis: Change in bowel habits Post-op diagnosis: other (Diverticulosis in the descending and sigmoid colon) Procedure & Clinicians Study performed: Colonoscopy procedural sedation performed by the endoscopist Random biopsies to rule out microscopic colitis Same procedure as scheduled: Yes Indications: Cramping, bloating, diarrhea Surgeon: Rosa Layne Procedure Notes SCOAP/Timeout: Performed Procedure in detail: The patient was brought to the room and placed in left lateral decubitus position with all bony prominences padded. A time-out was performed and then the patient was given procedural sedation starting with 2 mg of Versed and 100 mcg of fentanyl. Total of 6 mg of Versed and 150 micro g of fentanyl were given for the entire procedure. Vitals were monitored throughout the procedure and remained stable. Once adequately sedated, the procedure was begun. A rectal exam was performed revealing no abnormalities. The colonoscope was then introduced to the rectum and advanced to the cecum in the usual fashion. The cecum was identified by the appendiceal orifice, the mucosal tri- fold, and the ileocecal valve. The scope was then retracted while rotating side to side and examining each mucosal fold. Random biopsies were taken to rule out microscopic colitis. No polyps were found. Moderate diverticulosis is seen in the descending and sigmoid colon without evidence of active diverticulitis. At the conclusion of the procedure retroflexion was performed and small grade 1-2 internal hemorrhoids without stigmata of bleeding were seen. The scope was then withdrawn from the rectum the procedure was concluded. The patient tolerated the procedure well and was transferred to the PACU in stable condition. Scope withdrawal time: 11 Sedation minutes: 28 Findings: diverticulosis Specimen(s): other (Random biopsies) Complications: none Impression: Diverticulosis Post-procedure Recommendations: Colonscopy in 10 years Plan for aftercare: Will contact patient and primary doctor with biopsy results. If biopsy results are normal, we will refer patient back to Gastroenterology for further workup of her symptoms. Follow up: as needed Disposition: PACU
[2020-06-17] MEDS: ONDANSETRON 4 MG/2 ML INJ IV (07:41)
[2020-06-17] MEDS: fentaNYL 250 MCG/5 ML INJ IV (07:42)
[2020-06-17] MEDS: MIDAZOLAM 5 MG/5 ML VIAL IV (07:42)
== END 2020-06-17 09:04 | disposition home or self-care (01) ==
PROVIDERS: PCP Internal Medicine; Referring Provider Internal Medicine; Visit Provider Surgery
PROC: 0DJD8ZZ Inspection of Lower Intestinal Tract, Via Natural or Artificial Opening Endoscopic (ICD-10-PCS; CPT 45378; principal; 2020-06-17 07:45)
DX: R19.4 Change in bowel habit (principal); R10.9 Unspecified abdominal pain; R14.0 Abdominal distension (gaseous); R63.4 Abnormal weight loss; E78.5 Hyperlipidemia, unspecified; E05.90 Thyrotoxicosis, unspecified without thyrotoxic crisis or storm; K57.30 Diverticulosis of large intestine without perforation or abscess without bleeding; K64.0 First degree hemorrhoids
CPT/HCPCS: 45380; 99152; J2250; J2405; J3010

== ENCOUNTER → 2020-10-15 09:26 | Outpatient (CLI) | payer MEDICARE, OTHER, SELFPAY ==
[2020-10-15 10:09] LABS: Add Manual Diff / Slide Review NO; Basophils Absolute Auto 0 /uL (0-100); Basophils Percent Auto 0.9 % (0-2); Eosinophils Absolute Auto 100 /uL (0-450); Eosinophils Percent Auto 1.9 % (2-4); Hematocrit 40.4 % (36-46); Hemoglobin 13.6 g/dL (12.0-16.0); Lymphocytes Absolute Auto 1500 /uL (1100-4500); Lymphocytes Percent Auto 31.2 % (25-40); Mean Corpuscular HGB Conc 33.6 % (30-36); Mean Corpuscular Hemoglobin 29.6 PG (26-34); Mean Corpuscular Volume 88.3 fL (80-100); Monocytes Absolute Auto 400 /uL (0-900); Monocytes Percent Auto 7.6 % (3-14); Neutrophils Absolute Auto 2800 /uL (1500-7000); Neutrophils Percent Auto 58.4 % (50-75); Platelet Count 179 X10^3/uL (150-400); Red Blood Cell Count 4.58 X10^6/uL (4.0-5.2); White Blood Cell Count 4.8 X10^3/uL (4.5-11.0)
[2020-10-15 10:39] LABS: Alanine Aminotransferase 16 IU/L (<35); Albumin 4.8 g/dL (3.5-5.0); Albumin Globulin Ratio 1.8 (1.0-2.8); Alkaline Phosphatase 72 U/L (38-126); Aspartate Aminotransferase 27 IU/L (14-36); Bilirubin Total 0.5 mg/dL (0.2-1.3); Bilirubin Unconjugated 0.4 mg/dL (0.0-1.1); Globulin 2.7 g/dL (1.7-4.1); HEMOLYSIS < 15 (0-50); Total Protein 7.5 g/dL (6.3-8.2)
[2020-10-15 10:57] LABS: Free T3, Triiodothyronine Free 3.42 pg/mL (2.77-5.27); Free T4, Direct Thyroxine 0.93 ng/dL (0.78-2.19)
[2020-10-15 11:10] LABS: Thyroid Stimulating Hormone 0.772 uIU/mL (0.47-4.68)
== END ==
PROVIDERS: PCP Internal Medicine; Referring Provider Internal Medicine Endocrinology, Diabetes & Metabolism; Visit Provider Internal Medicine Endocrinology, Diabetes & Metabolism
DX: E04.1 Nontoxic single thyroid nodule (principal); E05.90 Thyrotoxicosis, unspecified without thyrotoxic crisis or storm; R94.5 Abnormal results of liver function studies
CPT/HCPCS: 36415; 80076; 84439; 84443; 84481; 85025

== ENCOUNTER → 2021-01-21 11:24 | Outpatient (CLI) | payer MEDICARE, OTHER, SELFPAY ==
[2021-01-21 11:53] LABS: Add Manual Diff / Slide Review NO; Basophils Absolute Auto 100 /uL (0-100); Basophils Percent Auto 1.3 % (0-2); Eosinophils Absolute Auto 100 /uL (0-450); Eosinophils Percent Auto 1.9 % (2-4); Hematocrit 39.9 % (36-46); Hemoglobin 13.4 g/dL (12.0-16.0); Lymphocytes Absolute Auto 1400 /uL (1100-4500); Lymphocytes Percent Auto 21.1 % (25-40); Mean Corpuscular HGB Conc 33.5 % (30-36); Mean Corpuscular Hemoglobin 30.6 PG (26-34); Mean Corpuscular Volume 91.4 fL (80-100); Monocytes Absolute Auto 600 /uL (0-900); Monocytes Percent Auto 8.7 % (3-14); Neutrophils Absolute Auto 4400 /uL (1500-7000); Platelet Count 216 X10^3/uL (150-400); Red Blood Cell Count 4.36 X10^6/uL (4.0-5.2); Red Cell Distribution Width 12.9 % (11.6-14.8); White Blood Cell Count 6.6 X10^3/uL (4.5-11.0)
[2021-01-21 12:04] LABS: Alanine Aminotransferase 21 IU/L (<35); Albumin 4.2 g/dL (3.5-5.0); Albumin Globulin Ratio 1.8 (1.0-2.8); Alkaline Phosphatase 43 U/L (38-126); Aspartate Aminotransferase 27 IU/L (14-36); Bilirubin Total 0.4 mg/dL (0.2-1.3); Bilirubin Unconjugated 0.4 mg/dL (0.0-1.1); Globulin 2.3 g/dL (1.7-4.1); HEMOLYSIS < 15 (0-50); Total Protein 6.5 g/dL (6.3-8.2)
== END ==
PROVIDERS: PCP Internal Medicine; Referring Provider Internal Medicine Endocrinology, Diabetes & Metabolism; Visit Provider Internal Medicine Endocrinology, Diabetes & Metabolism
DX: E05.90 Thyrotoxicosis, unspecified without thyrotoxic crisis or storm (principal); R94.6 Abnormal results of thyroid function studies
CPT/HCPCS: 36415; 80076; 85025

== ENCOUNTER 2021-01-28 12:31 | Emergency (ER) | payer MEDICARE, OTHER, SELFPAY ==
[2021-01-28 12:36] VITALS: BP 117/56; PULSE 73; RESP 14; TEMP 36.7; O2SAT 97; BMI 25.9
--- NOTE | 2021-01-28 12:46 | DI.RAD.S_ITS ---
PROCEDURE: XR FOOT LT MIN 3V INDICATIONS: Dropped plywood on foot. Unable to move great toe. TECHNIQUE: 3 views of the foot were acquired. COMPARISON: None. FINDINGS: Bones: No fractures or dislocations. No suspicious bony lesions. Soft tissues: No tibiotalar joint effusion. Achilles tendon appears normal. IMPRESSION: No acute osseous abnormality. Dictated by: Homero Fernández M.D. on 01/28/2021 at 13:13 Approved by: Homero Fernández M.D. on 01/28/2021 at 13:14
--- NOTE | 2021-01-28 14:46 | ED_ITS ---
HPI - Extremity Injury (Lower) <Adonis De La Fuente PA-C - Last Filed: 01/28/21 18:52> General Chief Complaint: Extremity Injury, Lower Stated Complaint: Dropped Plywood on Left Toes, Poss Break Time Seen by Provider: 01/28/21 14:01 Source: patient Mode of arrival: Ambulatory History of Present Illness HPI Narrative: Patient is a 70-year-old female presenting to the emergency department today for evaluation of a left foot injury. 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 Of note, patient states she was wearing tennis shoes when the injury occurred. She explains that she has had pain in her left foot and toes since injury occurred, noting that she has had difficulty moving the great toe of her left foot ever since stopping the plywood. Patient states that she did not fall as a result of the injury, and she denies losing consciousness or hitting her head as a result of the injury. Patient also denies pain or injury elsewhere. No fever, chills, chest pain, cough, shortness of breath, nausea, vomiting, diarrhea, abdominal pain, hematuria, dysuria, for numbness and tingling the bilateral lower extremities reported. No other concerns are voiced at this time. Related Data Home Medications Medication Instructions Recorded Confirmed estradiol 0.05 mg/24 hr semiweekly See Rx Instructions .ROUTE .COMPLEX 02/25/20 06/17/20 transdermal patch rosuvastatin 20 mg tablet 20 mg PO DAILY 02/25/20 06/17/20 cholecalciferol (vitamin D3) 25 25 mcg PO DAILY 06/02/20 06/17/20 mcg (1,000 unit) capsule methimazole 5 mg tablet 5 mg PO DAILY 06/02/20 06/17/20 vitamin B complex (B 1 tab PO DAILY 06/02/20 06/17/20 Complex-Vitamin B12) magnesium 250 mg tablet 250 mg PO DAILY 06/17/20 06/17/20 Allergies Allergy/AdvReac Type Severity Reaction Status Date / Time Penicillins Allergy Mild Rash Verified 06/02/20 14:30 Sulfa (Sulfonamide Allergy Mild Redness of Verified 06/02/20 14:30 Antibiotics) Skin Review of Systems <Adonis De La Fuente PA-C - Last Filed: 01/28/21 18:52> Constitutional Constitutional: Denies chills, Denies fatigue, Denies fever(s), Denies frequent falls, Denies lethargy and Denies weakness Eyes Eyes: Denies loss of vision ENT Ears, Nose, Mouth, and Throat: Denies dizziness and Denies neck pain Cardiovascular Cardiovascular: Denies chest pain, Denies irregular heart rhythm, Denies lightheadedness, Denies palpitations, Denies dyspnea, Denies dyspnea on exertion and Denies orthopnea Respiratory Respiratory: Denies cough, Denies dyspnea, Denies dyspnea on exertion and Denies wheezing Gastrointestinal Gastrointestinal: Denies abdominal pain, Denies change in bowel habits, Denies diarrhea, Denies nausea and Denies vomiting Genitourinary Genitourinary: Denies hematuria, Denies flank pain, Denies urinary incontinence and Denies urinary urgency Musculoskeletal Musculoskeletal: Denies back pain, Reports arthralgias (Left great toe), Denies muscle weakness, Denies neck pain, Denies numbness and Denies tingling Integumentary/Breasts Skin/Breast: Denies pruritus, Denies erythema, Denies rash and Reports wounds (Abrasions over the left 2nd, 3rd, and 4th toes) Neurologic Neurologic: Denies behavioral changes, Denies confusion, Denies dizziness, Denies frequent falls, Denies loss of vision, Denies numbness, Denies tingling and Denies weakness Psychiatric Psychiatric: Denies behavioral changes and Denies confusion Endocrine Endocrine: Denies fatigue and Denies palpitations Allergic/Immunologic Allergic/Immunologic: Denies wheezing Patient History <Adonis De La Fuente PA-C - Last Filed: 01/28/21 18:52> Medical History Hyperlipidemia Hyperthyroidism Surgical History History of back surgery History of hysterectomy Hx of tonsillectomy S/P rotator cuff repair Status post cholecystectomy Status post oophorectomy Family History Father Hypertension Stroke Sister Breast cancer Uterine cancer Father Bladder cancer Social History marital status: household members: spouse Smoking Status: Never smoker alcohol intake: never Smoking Status: Never smoker alcohol intake frequency: 0-2 drinks per day Substance Use Type: does not use Exam <Adonis De La Fuente PA-C - Last Filed: 01/28/21 18:52> Narrative Exam Narrative: GENERAL: 70 year old patient appears stated age. Well-developed patient, in no acute distress. HEAD: Atraumatic. Normocephalic. EYES: Pupils equal round and reactive. Extraocular motions intact. No scleral icterus. No injection or drainage. ENT: Nose without bleeding, purulent drainage. Throat without erythema, tonsillar hypertrophy or exudate. Airway patent. NECK: Trachea midline. Non tender CARDIOVASCULAR: Regular rate and rhythm without murmurs, gallops, or rubs. RESPIRATORY: Clear to auscultation. Breath sounds equal bilaterally. No wheezes, rales, or rhonchi. GASTROINTESTINAL: Abdomen soft, non-tender, nondistended. EXTREMITIES: No edema. Tenderness to palpation appreciated over the base of the left great toe. Ecchymosis and abrasions noted over the left 2nd, 3rd, and 4th toes. Gross motor function intact throughout the bilateral lower extremities. Good sensation to light touch appreciated throughout the bilateral lower extremities. No significant deformity or discharge noted. BACK: Nontender without deformity or crepitance. No flank tenderness. NEURO: AOx3. SKIN: No rash or erythema of visible areas Initial Vital Signs Initial Vital Signs: Vital Signs Temperature 98.1 F 01/28/21 12:36 Pulse Rate 73 01/28/21 12:36 Respiratory Rate 14 01/28/21 12:36 Blood Pressure 117/56 L 01/28/21 12:36 Pulse Oximetry 97 01/28/21 12:36 <Romaine Jon DO - Last Filed: 01/29/21 08:35> Initial Vital Signs Initial Vital Signs: Vital Signs Temperature 98.1 F 01/28/21 12:36 Pulse Rate 73 01/28/21 12:36 Respiratory Rate 14 01/28/21 12:36 Blood Pressure 117/56 L 01/28/21 12:36 Pulse Oximetry 97 01/28/21 12:36 Course <Adonis De La Fuente PA-C - Last Filed: 01/28/21 18:52> Course Course Narrative: X-ray of left foot obtained. Orders Ordered: ED Orders 01/28/21 12:46 XR foot LT min 3V Stat Vital Signs Vital signs: Vital Signs - 8 hr 01/28/21 12:36 01/28/21 14:57 Temperature 98.1 F Pulse Rate 73 60 Respiratory Rate 14 18 Blood Pressure 117/56 L 132/62 Pulse Oximetry 97 99 <Romaine Jon DO - Last Filed: 01/29/21 08:35> Orders Ordered: ED Orders 01/28/21 12:46 XR foot LT min 3V Stat Vital Signs Vital signs: Vital Signs - 8 hr 01/28/21 12:36 01/28/21 14:57 Temperature 98.1 F Pulse Rate 73 60 Respiratory Rate 14 18 Blood Pressure 117/56 L 132/62 Pulse Oximetry 97 99 MDM - Extremity Injury (Lower) <Adonis De La Fuente PA-C - Last Filed: 01/28/21 18:52> Imaging Data Extremity x-ray #1: Radiologist's Impression: PROCEDURE:? XR FOOT LT MIN 3V ? INDICATIONS:? Dropped plywood on foot. Unable to move great toe. ? TECHNIQUE:? 3 views of the foot were acquired.? ? COMPARISON:? None. ? FINDINGS:? ? Bones:? No fractures or dislocations.? No suspicious bony lesions.? ? Soft tissues:? No tibiotalar joint effusion.? Achilles tendon appears normal.? ? ? IMPRESSION:? No acute osseous abnormality. ? ? Dictated by: Homero Fernández M.D. on 01/28/2021 at 13:13 ? ? Approved by: Homero Frenández M.D. on 01/28/2021 at 13:14 ? [facility] Narrative Medical decision making narrative: To consider fracture versus dislocation versus sprain versus strain. Overall physical examination, history, and imaging are reassuring. X-ray of foot in the ER today did not show signs of acute bony abnormality. Discussed with the patient the importance icing the painful area in treating her symptoms with [id number] Tylenol and ibuprofen. At this time patient agrees to plan and feels comfortable being discharged home. Strict return precautions were discussed with the patient prior to discharge. Discharge Plan Departure Patient Disposition: Home Clinical Impression: Acute pain of left foot, Abrasion foot/toe Instructions: DI for Foot Pain Activity Restrictions/Additional Instructions: *You have been diagnosed with acute left foot pain, toe abrasions. *What to do: *Please continue to take your regular medications as directed. [ ] New medication prescriptions sent to your pharmacy: [ ] [ ] New medication written as a paper prescription [X] No new medications given *Please follow up with your primary care provider in 2-3 days, call for an appointment. Let them know you were seen in the Emergency Department and that we ask that you be seen in follow up. We will electronically transmit a record of today's note if your PCP is in our system. *Please apply ice to the painful area as needed for 15-20 minutes at a time. Additionally, take dgof-jmx-jibcgad Motrin and Tylenol for pain as needed. Clean the injured areas with soap and water and pat dry. *If you do not have a primary care provider please contact the [facility] Resource line at [phone]. They will ask some questions about your medical history and help get you set up with a doctor in the community. *Return to Emergency Department if you should have any new, worsening or concerning symptoms, such as fever greater than 101 F, shaking chills, worsening pain, persistent vomiting or other bothersome symptoms. Prescriptions: No Action methimazole 5 mg tablet 5 mg PO DAILY 0RF vitamin B complex [B Complex-Vitamin B12] Tablet 1 tab PO DAILY 0RF cholecalciferol (vitamin D3) 25 mcg (1,000 unit) capsule 25 mcg PO DAILY 0RF estradiol 0.05 mg/24 hr patch semiweekly See Rx Instructions .ROUTE .COMPLEX 0RF Rx Instructions: 0.05 mg topically rosuvastatin 20 mg tablet 20 mg PO DAILY 0RF magnesium 250 mg Tablet 250 mg PO DAILY 0RF Referrals: Danielle Juárez MD [Primary Care Provider] - <Romaine Jon DO - Last Filed: 01/29/21 08:35> Cosign ED Attending Cosmaishaature Attestation: I was immediately available in the department for consultation. This documentation has been reviewed and I agree with assessment and plan. Supervised by Romaine Jon DO
[2021-01-28 14:57] VITALS: BP 132/62; PULSE 60; RESP 18; O2SAT 99
== END 2021-01-28 14:57 | disposition home or self-care (01) ==
PROVIDERS: Emergency Provider Physician Assistant; PCP Internal Medicine
DX: S90.812A Abrasion, left foot, initial encounter (principal); S90.415A Abrasion, left lesser toe(s), initial encounter; W20.8XXA Other cause of strike by thrown, projected or falling object, initial encounter; Y93.89 Activity, other specified
CPT/HCPCS: 73630; 99283

== ENCOUNTER → 2021-05-19 11:17 | Outpatient (CLI) | payer MEDICARE, OTHER, SELFPAY ==
[2021-05-19 12:22] LABS: Alanine Aminotransferase 22 IU/L (<35); Albumin 4.2 g/dL (3.5-5.0); Albumin Globulin Ratio 1.6 (1.0-2.8); Alkaline Phosphatase 42 U/L (38-126); Aspartate Aminotransferase 26 IU/L (14-36); Bilirubin Total 0.6 mg/dL (0.2-1.3); Bilirubin Unconjugated 0.5 mg/dL (0.0-1.1); Globulin 2.6 g/dL (1.7-4.1); HEMOLYSIS < 15 (0-50); Total Protein 6.8 g/dL (6.3-8.2)
[2021-05-19 12:51] LABS: Thyroid Stimulating Hormone 1.11 uIU/mL (0.47-4.68)
[2021-05-20 10:25] LABS: Free T4, Direct Thyroxine 1.44 ng/dL (0.78-2.19)
== END ==
PROVIDERS: PCP Internal Medicine; Referring Provider Internal Medicine Endocrinology, Diabetes & Metabolism; Visit Provider Internal Medicine Endocrinology, Diabetes & Metabolism
DX: E05.90 Thyrotoxicosis, unspecified without thyrotoxic crisis or storm (principal)
CPT/HCPCS: 36415; 80076; 84439; 84443; 84481

== ENCOUNTER → 2021-09-15 08:56 | Outpatient (CLI) | payer MEDICARE, OTHER, SELFPAY ==
[2021-09-15 10:15] LABS: Add Manual Diff / Slide Review NO; Basophils Absolute Auto 100 /uL (0-100); Basophils Percent Auto 0.9 % (0-2); Eosinophils Absolute Auto 100 /uL (0-450); Eosinophils Percent Auto 1.6 % (2-4); Hematocrit 41.5 % (36-46); Hemoglobin 13.7 g/dL (12.0-16.0); Lymphocytes Absolute Auto 1500 /uL (1100-4500); Lymphocytes Percent Auto 17.3 % (25-40); Mean Corpuscular HGB Conc 33.1 % (30-36); Mean Corpuscular Hemoglobin 30.7 PG (26-34); Mean Corpuscular Volume 92.7 fL (80-100); Monocytes Absolute Auto 800 /uL (0-900); Monocytes Percent Auto 8.8 % (3-14); Neutrophils Absolute Auto 6200 /uL (1500-7000); Neutrophils Percent Auto 71.4 % (50-75); Platelet Count 265 X10^3/uL (150-400); Red Blood Cell Count 4.47 X10^6/uL (4.0-5.2); Red Cell Distribution Width 13.8 % (11.6-14.8); White Blood Cell Count 8.7 X10^3/uL (4.5-11.0)
[2021-09-15 10:47] LABS: Alanine Aminotransferase 17 IU/L (<35); Albumin 4.1 g/dL (3.5-5.0); Albumin Globulin Ratio 1.8 (1.0-2.8); Alkaline Phosphatase 44 U/L (38-126); Aspartate Aminotransferase 22 IU/L (14-36); Bilirubin Total 0.5 mg/dL (0.2-1.3); Bilirubin Unconjugated 0.5 mg/dL (0.0-1.1); Globulin 2.3 g/dL (1.7-4.1); HEMOLYSIS < 15 (0-50); Total Protein 6.4 g/dL (6.3-8.2)
[2021-09-15 11:01] LABS: Free T3, Triiodothyronine Free 2.84 pg/mL (2.77-5.27); Free T4, Direct Thyroxine 1.07 ng/dL (0.78-2.19)
[2021-09-15 11:14] LABS: Thyroid Stimulating Hormone 1.01 uIU/mL (0.47-4.68)
== END ==
PROVIDERS: PCP Internal Medicine; Referring Provider Internal Medicine Endocrinology, Diabetes & Metabolism; Visit Provider Internal Medicine Endocrinology, Diabetes & Metabolism
DX: E05.90 Thyrotoxicosis, unspecified without thyrotoxic crisis or storm (principal); R94.6 Abnormal results of thyroid function studies
CPT/HCPCS: 36415; 80076; 84439; 84443; 84481; 85025

== ENCOUNTER → 2022-01-10 08:49 | Outpatient (CLI) | payer MEDICARE, OTHER, SELFPAY ==
[2022-01-10 11:12] LABS: Alanine Aminotransferase 22 IU/L (<35); Albumin 4.4 g/dL (3.5-5.0); Albumin Globulin Ratio 1.6 (1.0-2.8); Alkaline Phosphatase 48 U/L (38-126); Aspartate Aminotransferase 25 IU/L (14-36); Bilirubin Total 0.7 mg/dL (0.2-1.3); Bilirubin Unconjugated 0.7 mg/dL (0.0-1.1); Globulin 2.7 g/dL (1.7-4.1); HEMOLYSIS < 15 (0-50); Total Protein 7.1 g/dL (6.3-8.2)
[2022-01-10 11:33] LABS: Free T3, Triiodothyronine Free 2.96 pg/mL (2.77-5.27); Free T4, Direct Thyroxine 1.15 ng/dL (0.78-2.19)
[2022-01-10 11:46] LABS: Thyroid Stimulating Hormone 1.04 uIU/mL (0.47-4.68)
== END ==
PROVIDERS: PCP Internal Medicine; Referring Provider Internal Medicine Endocrinology, Diabetes & Metabolism; Visit Provider Internal Medicine Endocrinology, Diabetes & Metabolism
DX: E04.2 Nontoxic multinodular goiter (principal); E05.90 Thyrotoxicosis, unspecified without thyrotoxic crisis or storm
CPT/HCPCS: 36415; 80076; 84439; 84443; 84481

== ENCOUNTER → 2022-03-17 11:49 | Outpatient (CLI) | payer MEDICARE, OTHER, SELFPAY ==
[2022-03-17 12:42] LABS: Influenza A - CEPHEID Flu A NEGATIVE (NEGATIVE); Influenza B - CEPHEID Flu B NEGATIVE (NEGATIVE); Respiratory Syncytial Virus Negative (Negative)
[2022-03-17 12:45] LABS: COVID-19 CEPHEID 4-PLEX PCR Negative (Negative)
== END ==
PROVIDERS: PCP Internal Medicine; Visit Provider Nurse Practitioner Family
DX: R05.1 Acute cough (principal)
CPT/HCPCS: 0241U

== ENCOUNTER → 2022-07-25 11:18 | Outpatient (CLI) | payer MEDICARE, OTHER, SELFPAY ==
[2022-07-25 12:39] LABS: Add Manual Diff / Slide Review NO; Basophils Absolute Auto 100 /uL (0-100); Basophils Percent Auto 1.3 % (0-2); Eosinophils Absolute Auto 200 /uL (0-450); Eosinophils Percent Auto 2.7 % (2-4); Hematocrit 38.8 % (36-46); Hemoglobin 13.3 g/dL (12.0-16.0); Lymphocytes Absolute Auto 1300 /uL (1100-4500); Lymphocytes Percent Auto 21.3 % (25-40); Mean Corpuscular HGB Conc 34.2 % (30-36); Mean Corpuscular Hemoglobin 31.5 PG (26-34); Mean Corpuscular Volume 91.9 fL (80-100); Monocytes Absolute Auto 600 /uL (0-900); Monocytes Percent Auto 9.4 % (3-14); Neutrophils Absolute Auto 4100 /uL (1500-7000); Neutrophils Percent Auto 65.3 % (50-75); Platelet Count 204 X10^3/uL (150-400); Red Blood Cell Count 4.22 X10^6/uL (4.0-5.2); Red Cell Distribution Width 13.2 % (11.6-14.8); White Blood Cell Count 6.3 X10^3/uL (4.5-11.0)
[2022-07-25 13:04] LABS: Alanine Aminotransferase 29 IU/L (<35); Albumin 3.8 g/dL (3.5-5.0); Albumin Globulin Ratio 1.7 (1.0-2.8); Alkaline Phosphatase 46 U/L (38-126); Aspartate Aminotransferase 27 IU/L (14-36); Bilirubin Total 0.4 mg/dL (0.2-1.3); Bilirubin Unconjugated 0.3 mg/dL (0.0-1.1); Globulin 2.2 g/dL (1.7-4.1); HEMOLYSIS < 15 (0-50)
[2022-07-25 13:18] LABS: Free T3, Triiodothyronine Free 3.85 pg/mL (2.77-5.27); Free T4, Direct Thyroxine 1.02 ng/dL (0.78-2.19)
== END ==
PROVIDERS: PCP Internal Medicine; Referring Provider Internal Medicine Endocrinology, Diabetes & Metabolism; Visit Provider Internal Medicine Endocrinology, Diabetes & Metabolism
DX: E05.90 Thyrotoxicosis, unspecified without thyrotoxic crisis or storm (principal); E04.1 Nontoxic single thyroid nodule
CPT/HCPCS: 36415; 80076; 84439; 84443; 84481; 85025

== ENCOUNTER → 2022-12-07 15:31 | Outpatient (CLI) | payer MEDICARE, OTHER, SELFPAY ==
[2022-12-07 18:38] LABS: Add Manual Diff / Slide Review NO; Basophils Absolute Auto 100 /uL (0-100); Basophils Percent Auto 1.4 % (0-2); Eosinophils Absolute Auto 200 /uL (0-450); Eosinophils Percent Auto 2.2 % (2-4); Hemoglobin 13.2 g/dL (12.0-16.0); Lymphocytes Absolute Auto 1900 /uL (1100-4500); Lymphocytes Percent Auto 23.7 % (25-40); Mean Corpuscular HGB Conc 33.8 % (30-36); Mean Corpuscular Hemoglobin 30.3 PG (26-34); Mean Corpuscular Volume 89.7 fL (80-100); Monocytes Absolute Auto 500 /uL (0-900); Monocytes Percent Auto 6.6 % (3-14); Neutrophils Absolute Auto 5400 /uL (1500-7000); Neutrophils Percent Auto 66.1 % (50-75); Platelet Count 262 X10^3/uL (150-400); Red Blood Cell Count 4.35 X10^6/uL (4.0-5.2); Red Cell Distribution Width 13.2 % (11.6-14.8); White Blood Cell Count 8.1 X10^3/uL (4.5-11.0)
[2022-12-07 18:53] LABS: Free T3, Triiodothyronine Free 3.64 pg/mL (2.77-5.27); Free T4, Direct Thyroxine 1.39 ng/dL (0.78-2.19)
[2022-12-07 18:57] LABS: Alanine Aminotransferase 18 IU/L (<35); Albumin 4.3 g/dL (3.5-5.0); Albumin Globulin Ratio 1.8 (1.0-2.8); Alkaline Phosphatase 49 U/L (38-126); Aspartate Aminotransferase 23 IU/L (14-36); Bilirubin Total 0.2 mg/dL (0.2-1.3); Bilirubin Unconjugated 0.3 mg/dL (0.0-1.1); Globulin 2.4 g/dL (1.7-4.1); HEMOLYSIS < 15 (0-50); Total Protein 6.7 g/dL (6.3-8.2)
[2022-12-07 19:06] LABS: Thyroid Stimulating Hormone 0.871 uIU/mL (0.47-4.68)
== END ==
PROVIDERS: PCP Internal Medicine; Referring Provider Internal Medicine Endocrinology, Diabetes & Metabolism; Visit Provider Internal Medicine Endocrinology, Diabetes & Metabolism
DX: E05.90 Thyrotoxicosis, unspecified without thyrotoxic crisis or storm (principal)
CPT/HCPCS: 36415; 80076; 84439; 84443; 84481; 85025

== ENCOUNTER → 2023-01-02 09:21 | Outpatient (CLI) | payer MEDICARE, OTHER, SELFPAY ==
[2023-01-02 10:35] LABS: BUN Creatinine Ratio 19.7 (6-22); Blood Urea Nitrogen 15 mg/dL (7-17); Calcium 9.8 mg/dL (8.4-10.2); Carbon Dioxide 30 mmol/L (22-32); Chloride 102 mmol/L (98-107); Cholesterol 198 mg/dL (140-199); Estimated Glomerular Filt Rate > 60 mL/min (>60); Glucose 86 mg/dL (80-110); HDL Cholesterol 54 mg/dL (40-60); HEMOLYSIS < 15 (0-50); LDL Cholesterol Calculated 113 mg/dL (<100); Potassium 3.9 mmol/L (3.4-5.1); Sodium 140 mmol/L (137-145); Triglycerides 154 mg/dL (35-150)
[2023-01-02 10:42] LABS: High Sensitivity CRP - Cardiac 2.4 mg/L (1.0-3.0)
== END ==
PROVIDERS: PCP Family Medicine; Referring Provider Family Medicine; Visit Provider Family Medicine
DX: E78.00 Pure hypercholesterolemia, unspecified (principal); K58.9 Irritable bowel syndrome, unspecified; K22.70 Barrett's esophagus without dysplasia; R19.7 Diarrhea, unspecified
CPT/HCPCS: 36415; 80048; 80061; 86140

== ENCOUNTER → 2023-06-22 06:57 | Outpatient (CLI) | payer MEDICARE, OTHER, SELFPAY ==
[2023-06-22 08:09] LABS: Add Manual Diff / Slide Review NO; Basophils Absolute Auto 100 /uL (0-100); Basophils Percent Auto 1.2 % (0-2); Eosinophils Absolute Auto 200 /uL (0-450); Hematocrit 42.7 % (36-46); Hemoglobin 14.4 g/dL (12.0-16.0); Lymphocytes Absolute Auto 1600 /uL (1100-4500); Lymphocytes Percent Auto 26.2 % (25-40); Mean Corpuscular HGB Conc 33.8 % (30-36); Mean Corpuscular Hemoglobin 30.7 PG (26-34); Mean Corpuscular Volume 90.9 fL (80-100); Monocytes Absolute Auto 600 /uL (0-900); Monocytes Percent Auto 9.4 % (3-14); Neutrophils Absolute Auto 3700 /uL (1500-7000); Neutrophils Percent Auto 60.2 % (50-75); Platelet Count 237 X10^3/uL (150-400); Red Cell Distribution Width 13.4 % (11.6-14.8); White Blood Cell Count 6.2 X10^3/uL (4.5-11.0)
[2023-06-22 08:38] LABS: Alanine Aminotransferase 25 IU/L (<35); Albumin 4.4 g/dL (3.5-5.0); Albumin Globulin Ratio 1.8 (1.0-2.8); Alkaline Phosphatase 57 U/L (38-126); Aspartate Aminotransferase 28 IU/L (14-36); Bilirubin Total 0.4 mg/dL (0.2-1.3); Bilirubin Unconjugated 0.4 mg/dL (0.0-1.1); Globulin 2.4 g/dL (1.7-4.1); HEMOLYSIS < 15 (0-50); Total Protein 6.8 g/dL (6.3-8.2)
[2023-06-22 08:52] LABS: Cholesterol 173 mg/dL (140-199); HDL Cholesterol 60 mg/dL (40-60); LDL Cholesterol Calculated 93 mg/dL (<100); Triglycerides 98 mg/dL (35-150)
[2023-06-22 08:53] LABS: Free T3, Triiodothyronine Free 3.68 pg/mL (2.77-5.27); Free T4, Direct Thyroxine 1.07 ng/dL (0.78-2.19)
[2023-06-22 09:07] LABS: Thyroid Stimulating Hormone 1.36 uIU/mL (0.47-4.68)
== END ==
PROVIDERS: PCP Family Medicine; Referring Provider Internal Medicine Endocrinology, Diabetes & Metabolism; Visit Provider Internal Medicine Endocrinology, Diabetes & Metabolism
DX: E05.90 Thyrotoxicosis, unspecified without thyrotoxic crisis or storm (principal); E04.1 Nontoxic single thyroid nodule; E78.00 Pure hypercholesterolemia, unspecified
CPT/HCPCS: 36415; 80061; 80076; 84439; 84443; 84481; 85025

== ENCOUNTER → 2023-12-19 11:59 | Outpatient (CLI) | payer MEDICARE, OTHER, SELFPAY ==
[2023-12-19 12:48] LABS: Add Manual Diff / Slide Review NO; Basophils Absolute Auto 100 /uL (0-100); Basophils Percent Auto 0.9 % (0-2); Eosinophils Absolute Auto 200 /uL (0-450); Eosinophils Percent Auto 1.8 % (2-4); Hematocrit 43.4 % (36-46); Hemoglobin 14.6 g/dL (12.0-16.0); Lymphocytes Absolute Auto 1800 /uL (1100-4500); Lymphocytes Percent Auto 19.9 % (25-40); Mean Corpuscular HGB Conc 33.7 % (30-36); Mean Corpuscular Hemoglobin 31.4 PG (26-34); Mean Corpuscular Volume 93.1 fL (80-100); Monocytes Absolute Auto 600 /uL (0-900); Monocytes Percent Auto 6.2 % (3-14); Neutrophils Absolute Auto 6500 /uL (1500-7000); Neutrophils Percent Auto 71.2 % (50-75); Platelet Count 230 X10^3/uL (150-400); Red Blood Cell Count 4.67 X10^6/uL (4.0-5.2); Red Cell Distribution Width 13.1 % (11.6-14.8); White Blood Cell Count 9.2 X10^3/uL (4.5-11.0)
[2023-12-19 13:11] LABS: Alanine Aminotransferase 34 IU/L (<35); Albumin 4.5 g/dL (3.5-5.0); Albumin Globulin Ratio 1.7 (1.0-2.8); Alkaline Phosphatase 54 U/L (38-126); Aspartate Aminotransferase 37 IU/L (14-36); Bilirubin Total 0.5 mg/dL (0.2-1.3); Bilirubin Unconjugated 0.3 mg/dL (0.0-1.1); Globulin 2.6 g/dL (1.7-4.1); HEMOLYSIS < 15 (0-50); Total Protein 7.1 g/dL (6.3-8.2)
[2023-12-19 13:26] LABS: Free T3, Triiodothyronine Free 3.58 pg/mL (2.77-5.27); Free T4, Direct Thyroxine 1.08 ng/dL (0.78-2.19)
[2023-12-19 13:40] LABS: Thyroid Stimulating Hormone 0.942 uIU/mL (0.47-4.68)
== END ==
PROVIDERS: PCP Family Medicine; Referring Provider Internal Medicine Endocrinology, Diabetes & Metabolism; Visit Provider Internal Medicine Endocrinology, Diabetes & Metabolism
DX: E05.90 Thyrotoxicosis, unspecified without thyrotoxic crisis or storm (principal)
CPT/HCPCS: 36415; 80076; 84439; 84443; 84481; 85025

== ENCOUNTER → 2023-12-31 11:12 | Outpatient (CLI) | payer MEDICARE, OTHER, SELFPAY ==
--- NOTE | 2023-12-31 11:13 | DI.RAD.S_ITS ---
PROCEDURE: XR DEXA AXIAL SKELETON INDICATIONS: bone density screening [facility]. FINDINGS: Lumbar Spine: Bone mineral density 1.24 g/cm2, T score 2, previous 1.5. Left Hip: Bone mineral density 1.04 g/cm2, T score 0.8, previous 0.5. Left Femoral Neck: Bone mineral density 0.85 g/cm2, T score 0, previous -0.7. Right Hip: Bone mineral density 1.01 g/cm2, T score 0.6, previous 0.2. Right Femoral Neck: Bone mineral density 0.86 g/cm2, T score 0.1, previous -0.7. Fracture Risk Calculation (when applicable): 10-year fracture risk of a major osteoporotic fracture 7.5% percent and of a hip fracture 0.6% percent. (T score greater or equal to -1.0 to: NORMAL) (T score from -1.1 to -2.4: OSTEOPENIA) (T score less than or equal to -2.5: OSTEOPOROSIS) IMPRESSION: Normal bone mineral density. Follow-up guidelines as follows: Osteoporosis: Consider a repeat DEXA and Vertebral Fracture Assessment (VFA) exam in 2 years or sooner if medically necessary, to reassess this patient's status. Osteopenia: Consider a repeat DEXA in 2-3 years to reassess this patient's status, or if there is a new clinical indication. Normal: Consider a repeat DEXA in 5 years or sooner, or if there is a new clinical indication. All treatment decisions require clinical judgment and consideration of individual patient factors, including patient preferences, comorbidities, previous drug use, risk factors not captured in the FRAX model (e.g., frailty, falls, vitamin D deficiency, increased bone turnover, interval significant decline in bone density ) and possible under- or over-estimation of fracture risk by FRAX. In addition, the NOF Guide recommends that FDA-approved medical therapies be considered in postmenopausal women and men age >= 50 years with a: * Hip or vertebral (clinical or morphometric) fracture * T-score of <=-2.5 at the spine or hip * Ten-year fracture probability by FRAX of >= 3% for hip fracture or >=20% for major osteoporotic fracture. People with diagnosed cases of osteoporosis or at high risk for fracture should have regular bone mineral density tests. For patients eligible for Medicare, routine testing is allowed once every 2 years. The testing frequency can be increased to one year for patients who have rapidly progressing disease, those who are receiving or discontinuing medical therapy to restore bone mass, or have additional risk factors. Dictated by: Julio Garrett M.D. on 12/31/2023 at 15:17 Approved by: Julio Garrett M.D. on 12/31/2023 at 15:23
== END ==
PROVIDERS: PCP Family Medicine; Referring Provider Family Medicine; Visit Provider Family Medicine
DX: M85.89 Other specified disorders of bone density and structure, multiple sites (principal); E78.00 Pure hypercholesterolemia, unspecified; E05.90 Thyrotoxicosis, unspecified without thyrotoxic crisis or storm
CPT/HCPCS: 77080

== ENCOUNTER 2024-03-06 07:25 | Day surgery (SDC) | payer MEDICARE, OTHER, SELFPAY ==
--- NOTE | 2024-03-06 | PATH_ITS ---
[facility] Accession Number: [id number] No. of containers..01 Tissue . 01 Material submitted: . esophagus, E-G Junction - GE JUNCTION . 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 Negative for dysplasia and malignancy. [facility] 03/10/2024 1040 Local . 01 Electronically signed: . Phoenix Gil MD, PhD, Pathologist NPI- [id number] . 01 Gross description: . Received in formalin with two patient identifiers and GE junction, are five devlin soft tissue fragments, 0.3-0.4 cm in greatest dimension, submitted in A1. (KB:[id number]) /MRV 03/07/2024 1734 Local . 01 Pathologist provided ICD-10: K22.70 . 01 CPT . 861537 Performed at: 01 [facility] [address], [place], [place] [id number] MD Zac Mitchell MD Phone: [phone]
[2024-03-06 08:06] VITALS: BP 129/66; PULSE 61; RESP 16; TEMP 36.5; O2SAT 97
[2024-03-06] MEDS: SODIUM CHLORIDE 0.9% 1,000 ML 84 ML IV (08:39)
--- NOTE | 2024-03-06 08:54 | PM.HP.IH.1 ---
History of Present Illness History of Present Illness Date Patient Seen: 03/06/24 Time Patient Seen: 08:54 Chief complaint: [facility] [place] Narrative: Hector is a 73-year-old woman with a history of Crews esophagus. She is here for her EGD. See the office note from last year for details. FORMERLY [facility] Medical History (Updated 12/25/23 @ 17:54 by Marge George DO) Migraines (~1962) Chronic back pain (~1989) Mumps Measles (~1955) Chicken pox (~1954) Rectocele (~2020) Ovarian cyst (~1976) Fibroids (~2019) Irritable bowel syndrome (~2019) Colon polyps (~2014) Crews's esophagus (~2020) Thyroid nodule (~2017) Skin cancer (~1999) Hyperthyroidism (~2017) Hyperlipidemia Surgical History (Updated 12/17/22 @ 19:10 by Donna Marcum) History of repair of rectocele (~11/2022) Ductal papilloma (~2021) History of surgical removal of ganglion cyst Anesthesia History of hysterectomy (~2020) History of back surgery (~1991) Hx of tonsillectomy (~1958) Status post oophorectomy (~1977) Status post cholecystectomy (~2015) S/P rotator cuff repair (~2018) Family History (Updated 12/17/22 @ 19:15 by Donna Marcum) Father Hypertension Stroke Cancer Hyperlipidemia Sister Breast cancer Uterine cancer Cancer Hyperlipidemia Mother Alzheimer's disease Grandfather Bleeding ulcer Grandmother History of heart disease Grandfather Cancer Grandmother Diabetes mellitus Stroke Social History marital status: household members: spouse Smoking Status: Never smoker alcohol intake: never Meds Home Medications and Allergies Home Medications Medication Instructions Recorded Confirmed Type cholecalciferol (vitamin D3) 25 25 mcg PO DAILY 06/02/20 12/25/23 History mcg (1,000 unit) capsule vitamin B complex (B 1 tab PO DAILY 06/02/20 12/25/23 History Complex-Vitamin B12 tablet) magnesium 250 mg tablet 250 mg PO DAILY 06/17/20 12/25/23 History omega 2-kfr-sbs-fish oil 1,000 mg 1 cap PO DAILY #30 caps 12/18/22 12/25/23 Rx (120 mg-180 mg) capsule (Fish Oil) sumatriptan succinate 50 mg tablet 50 mg PO ONCE #27 tabs 07/02/23 03/06/24 Rx dicyclomine 20 mg tablet 20 mg PO BID #180 tabs 12/25/23 Rx estradiol 0.01% (0.1 mg/gram) vaginal 12/25/23 12/25/23 History vaginal cream estradiol 0.05 mg/24 hr semiweekly See Rx Instructions .Route 12/25/23 Rx transdermal patch .COMPLEX #24 ea nortriptyline 10 mg capsule mg PO 12/25/23 12/25/23 History rosuvastatin 10 mg tablet 10 mg PO DAILY #90 tabs 12/25/23 03/06/24 Rx triamcinolone acetonide 0.1 % topical 12/25/23 12/25/23 History topical ointment methimazole 5 mg tablet See Rx Instructions PO DAILY #90 01/09/24 03/06/24 Rx tabs Allergies Allergy/AdvReac Type Severity Reaction Status Date / Time Sulfa (Sulfonamide Allergy Mild Redness of Verified 03/06/24 08:01 Antibiotics) Skin Penicillins Allergy Unknown Verified 03/06/24 08:01 Exam Vital Signs (past 8 hours): - 03/06/24 08:06 Temperature 97.7 F Pulse Rate 61 Respiratory Rate 16 Blood Pressure 129/66 Pulse Oximetry 97 Oxygen Delivery Method Room Air Oxygen Delivery Method Room Air Const General: No acute distress Assessment & Plan Assessment and plan (1) Crews's esophagus: Problem details: prev PPI then switched to H2bl Qualifiers: Crews's esophagus type: without dysplasia Qualified Code(s): K22.70 - Crews's esophagus without dysplasia Status: Acute Plan Proceed with esophagogastroduodenoscopy. Time-Based Coding :: [TOTAL MINUTES] spent with patient and on the chart (including review of chart, obtaining history, exam, reviewing outside data, placing orders, documenting exam and treatment plan, and counseling patient) on [DATE]. [employer] Document charge(s): No
--- NOTE | 2024-03-06 09:22 | PM.OP.EGD ---
Operative Date/Time/Diagnoses Date of procedure: 03/06/24 Time of procedure: 09:22 Pre-op diagnosis: History of Crews esophagus Post-op diagnosis: same Procedure & Clinicians Study performed: Esophagogastroduodenoscopy Same procedure as scheduled: Yes Surgeon: Harpreet Faulkner Procedure Notes Procedure in detail: Surgeon: Harpreet Faulkner MD Anesthesia: Halley Abernathy MD A timeout was performed. A bite blocked was placed. The patient was positioned in the left lateral decubitus position. Anesthesia was administered. The endoscope was inserted through the bite block and passed through the esophagus and stomach and into the duodenum. The duodenal mucosa appeared normal. The scope was withdrawn into the duodenal bulb and no abnormalities were seen. The scope was withdrawn into the stomach. No abnormalities were seen in the distal stomach. The scope was retroflexed and a hiatal hernia was noted. The diaphragmatic indentation was at 38 cm and the GE junction was at 35 cm. The scope was withdrawn into the esophagus. There were 3 tongues of salmon-colored mucosa at the GE junction extending about 2 cm. Multiple biopsies were taken from within the tongues of salmon-colored mucosa and sent as ?GE junction. The remainder of the esophagus was normal. The scope was withdrawn. The patient was awakened and brought to recovery. Sedation time: 7 minutes Findings: 3 cm hiatal hernia and 3 tongues of salmon-colored mucosa at the GE junction measuring about 2 cm Post-procedure Disposition: PACU
[2024-03-06 09:23] VITALS: BP 142/66; PULSE 77; RESP 16; TEMP 36.2; O2SAT 98
[2024-03-06 09:28] VITALS: BP 118/41; PULSE 65; RESP 16; TEMP 36.2; O2SAT 98
[2024-03-06] MEDS: BENZOCAINE/MENTHOL 1 LOZ PKT 1 EACH PO ×2 (09:56→10:33)
--- NOTE | 2024-03-06 10:21 | SUR.PHASEII ---
Patient has still continued coughing since her EGD. She did try cool water and warm tea with no help. She did get a cepacol lozenge which helped a lot. She started coughing again about 10 min after finishing the lozenge. Will give second lozenge and continue to monitor.
[2024-03-06 10:30] VITALS: BP 121/57; PULSE 65; RESP 14; TEMP 36.9; O2SAT 95
== END 2024-03-06 10:38 | disposition home or self-care (01) ==
PROVIDERS: PCP Family Medicine; Referring Provider Surgery; Visit Provider Surgery
PROC: 0DJ08ZZ Inspection of Upper Intestinal Tract, Via Natural or Artificial Opening Endoscopic (ICD-10-PCS; CPT 43239; principal; 2024-03-06 08:45)
DX: K22.70 Barrett's esophagus without dysplasia (principal); K44.9 Diaphragmatic hernia without obstruction or gangrene; E05.90 Thyrotoxicosis, unspecified without thyrotoxic crisis or storm; E78.5 Hyperlipidemia, unspecified; Z86.0100 Personal history of colon polyps, unspecified; Z85.828 Personal history of other malignant neoplasm of skin
CPT/HCPCS: 43239; J2704

== ENCOUNTER → 2024-09-24 08:18 | Outpatient (CLI) | payer MEDICARE, OTHER, SELFPAY ==
[2024-09-24 09:06] LABS: Add Manual Diff / Slide Review NO; Hematocrit 42.4 % (36-46); Hemoglobin 14.2 g/dL (12.0-16.0); Lymphocytes Absolute Auto 1600 /uL (1100-4500); Mean Corpuscular HGB Conc 33.5 % (30-36); Mean Corpuscular Hemoglobin 30.5 PG (26-34); Mean Corpuscular Volume 91.0 fL (80-100); Platelet Count 225 X10^3/uL (150-400)
[2024-09-24 09:31] LABS: Alanine Aminotransferase 20 IU/L (<35); Albumin 4.2 g/dL (3.5-5.0); Albumin Globulin Ratio 1.8 (1.0-2.8); Alkaline Phosphatase 52 U/L (38-126); Blood Urea Nitrogen 17 mg/dL (7-17); Calcium 9.5 mg/dL (8.4-10.2); Carbon Dioxide 28 mmol/L (22-32); Chloride 103 mmol/L (98-107); Cholesterol 162 mg/dL (140-199); Estimated Glomerular Filt Rate > 60 mL/min (>60); Globulin 2.3 g/dL (1.7-4.1); Glucose 101 mg/dL (70-99); HDL Cholesterol 54 mg/dL (40-60); HEMOLYSIS < 15 (0-50); Potassium 4.3 mmol/L (3.4-5.1); Sodium 137 mmol/L (137-145); Total Protein 6.5 g/dL (6.3-8.2); Triglycerides 93 mg/dL (35-150)
[2024-09-24 10:06] LABS: TSH w/ Reflex to FT4 1.28 uIU/mL (0.47-4.68)
== END ==
PROVIDERS: PCP Family Medicine; Referring Provider Family Medicine; Visit Provider Family Medicine
DX: E78.00 Pure hypercholesterolemia, unspecified (principal); E05.90 Thyrotoxicosis, unspecified without thyrotoxic crisis or storm; M85.89 Other specified disorders of bone density and structure, multiple sites
CPT/HCPCS: 36415; 80053; 80061; 84443; 85025